=== PATIENT | male | born 1960 | race Caucasian/White ===

== ENCOUNTER → 2016-09-05 | Outpatient (CLI) | payer BC ==
[~2016-09-05] MED LIST: ALLO300T2 PO; ASPEC81 PO; LPT40 PO; MULTTAB58 PO; RANI150C4 PO; SIMV20TA2 PO; VSC/10 PO
--- NOTE | 2016-09-05 08:35 | DIAGNOSTIC IMAGING REPORT ---
CT LUNG SCREENING, LOW DOSE WITH COMPUTER-AIDED DETECTION (CAD) CLINICAL HISTORY: Former smoker. COMPARISON STUDY: Chest 08/14/2010. CT DOSE: 79.39 mGycm TECHNIQUE: Low-dose helical CT was acquired without intravenous contrast from lung apices to bases and reconstructed at 2.5 mm every 2 mm. CAD was utilized for this study. FINDINGS: Tiny nodule within the anterior segment of the right upper lobe on image 65 of 163 and a tiny nodule within the right middle lobe on image 122 of 163. Mild emphysema. No pleural effusions. No pneumothorax. Trace mucoid material within the trachea. Otherwise, the central airways are patent. No suspicious lytic or blastic osseous lesions. No mediastinal or hilar lymphadenopathy. The heart is normal in size. No pleural or pericardial effusions. The visualized liver, spleen, and adrenal glands are unremarkable. Nodule 1 Category: 2 Nodule 1 Status: Baseline Nodule 1 Description: Solid Nodule 1 Lesion ID: 1 Nodule 1 Slice Number: 42 Nodule 1 Volume (mm3): 20 Nodule 1 Major [place] mm: 3.8 Nodule 1 Minor [place] mm: 3.4 Nodule 2 Category: 2 Nodule 2 Status: Baseline Nodule 2 Description: Solid Nodule 2 Lesion ID: 2 Nodule 2 Slice Number: 99 Nodule 2 Volume (mm3): 15 Nodule 2 Major [place] mm: 4.0 Nodule 2 Minor [place] mm: 3.3 IMPRESSION: 1. There are total of 2 nodules within the right lung with recommendations described below. 2. Mild emphysema. CAD FINDINGS: Overall Lung RADS Category: 2 Lung RADS Management Recommendation: Lung-RADS 2: Continue annual screening in 12 months. Lung RADS Follow Up Date: 2017-09-05 Lung RADS Nodule ID: 1 Electronically signed by: Sal Durham M.D. 09/05/2016 8:34 AM Dictated Date/Time: 09/05/2016 8:24 AM
== END | disposition home or self-care (01) ==
LOC: C.CTS 08:05
PROVIDERS: ATTEND Internal Medicine
DX: R91.8 Other nonspecific abnormal finding of lung field (principal); J43.9 Emphysema, unspecified; Z87.891 Personal history of nicotine dependence

== ENCOUNTER 2016-10-21 11:04 | Observation (INO) | payer BC ==
[~2016-10-21] VITALS: Ht 182.9 cm; Wt 88.9 kg
[~2016-10-21 11:04] MED LIST changes: -ASPEC81 PO; -LPT40 PO
--- NOTE | 2016-10-21 11:45 | DIAGNOSTIC IMAGING REPORT ---
CHEST ONE VIEW PORTABLE HISTORY:56 yearsMaleacute chest pain and numbness. COMPARISON: 08/14/2010 TECHNIQUE: Portable upright AP view of the chest FINDINGS: Cardiomediastinal and hilar silhouettes are within normal limits. No pneumothorax, pleural effusion, focal airspace consolidation or overt pulmonary edema. Bones are grossly intact. IMPRESSION: No acute cardiopulmonary process. The above report was generated using voice recognition software. It may contain grammatical, syntax or spelling errors. Electronically signed by: Aidan Cunningham 10/21/2016 11:43 AM Dictated Date/Time: 10/21/2016 11:42 AM
[2016-10-21 11:47] LABS: HEMATOCRIT 39.5 % (42-52); MEAN CELL VOLUME 94.3 fL (80-100); MEAN CORPUSCULAR HEMOGLOBIN 31.7 pg (25-34); MEAN CORPUSCULAR HGB CONC 33.7 g/dl (32-36); MEAN PLATELET VOLUME 10.5 fL (7.4-10.4); PLATELET COUNT 193 K/uL (130-400); RED BLOOD COUNT 4.19 M/uL (4.7-6.1); WHITE BLOOD COUNT 4.49 K/uL (4.8-10.8)
[2016-10-21 11:56] LABS: BUN/CREATININE RATIO 13.2 (10-20); CALCIUM 9.7 mg/dl (8.5-10.1); CREATININE 1.1 mg/dl (0.60-1.40); POTASSIUM 3.8 mmol/L (3.5-5.1)
[2016-10-21] MEDS ORDERED: ASPIRIN 324 MG CHEW PO STA (11:58)
[2016-10-21] MEDS ORDERED: NITROGLYCERIN OINT 2% 1GM PACKET EXT ONE (12:00)
[2016-10-21 12:08] LABS: PARTIAL THROMBOPLASTIN RATIO 0.9; PROTHROMBIN TIME (PATIENT) 10.7 SECONDS (9.0-12.0)
[2016-10-21 12:59] LABS: LYME DISEASE AB IGG NEG (NEG)
[2016-10-21 13:02] LABS: LYME DISEASE AB IGM NEG (NEG)
--- NOTE | 2016-10-21 15:13 | DIAGNOSTIC IMAGING REPORT ---
LEFT LOWER EXTREMITY VENOUS DOPPLER CLINICAL HISTORY: Left calf pain. SOB with exertion COMPARISON STUDY: No previous studies for comparison. TECHNIQUE: Sonography of the deep venous system of the left lower extremity was performed. Compression and augmentation were evaluated. FINDINGS: The common femoral, superficial femoral and popliteal veins were compressible. Augmentation was normal. Flow was shown within the deep calf vessels. IMPRESSION: No evidence of deep venous thrombus within the left lower extremity. Electronically signed by: Tonio Charles M.D. 10/21/2016 3:11 PM Dictated Date/Time: 10/21/2016 3:11 PM
[2016-10-21] MEDS ORDERED: POLYETHYLENE (MIRALAX) 17 GM PACK PO PRN (17:15)
[2016-10-21] MEDS ORDERED: MAGNESIUM HYDROXIDE SUSP 30 ML UDC PO PRN (17:15)
[2016-10-21] MEDS ORDERED: NITROGLYCERIN 0.4 MG SL PER TAB CHARGE SL PRN (17:15)
[2016-10-21] MEDS ORDERED: ONDANSETRON INJ 2 MG/ML 2 ML VIAL IV PRN (17:15)
[2016-10-21] MEDS ORDERED: ALUMINUM/MAGNESIUM/SIMETH (MAALOX MAX) 30 ML UDC PO PRN (17:15)
--- NOTE | 2016-10-21 17:18 | History and Physical ---
History & Physical Date & Time of Service: Oct 21, 2016 at 17:15 Chief Complaint: Chest Pain, Numbness Primary Care Physician: Claudio De La Rosa M.D. History of Present Illness Source: patient Mr. Abdi is a 56 y/o male with PMHx of HLD, YAIMA S/P Nasal Surgery on BiPAP at night, GERD, and S/P Lumbar Herniated Disc Repair who presents to the ED complaining of L-sided CP x 1 month. He has had an intermittent L sided chest pain that only occurs with activity and lasts a few minutes and resolves. Over the last 3-4 days the pain seems to be more intense and and occurring more frequently. Other then increased intensity the characteristics of CP have not changed. Pain is located near the L nipple and is sharp in nature. He denies aggravating or alleviating factors to this chest pain. Reports associated diffuse L arm, L leg traveling along the medial aspect, and L facial numbness/ tingling x 1 month. He does report a history of low back issues and intermittent upper back pain. He hauls trees/logs for a living but denies trauma to the chest or back over this past month. He denies any weakness associated with the numbness/tingling. He does drink 2 glasses of wine a day, was a former smoker, and currently smoke marijuana daily. reports patient normally only eats one meal a day but denies known B12/folate deficiency. Reports a FHMx of [place] in his father in his 50s. He denies fever/chills, SOB, abdominal pain, N/V, dysuria, constipation/diarrhea, melena/hematochezia. In the ED, patient is currently CP free and only verbalizes L arm numbness. He received ASA 324 mg x 1 and Nitropaste. EKG is NSR without ischemic findings. Initial troponin negative. AST and ALT elevated at 74 and 83 respectively. CXR and venous doppler unremarkable. He will be admitted to telemetry for chest pain R/O. Past Medical/Surgical History Medical Problems: (1) ACUTE APPENDICITIS NOS Status: Resolved (2) Appendectomy Status: Resolved (3) CALCULUS OF KIDNEY Status: Resolved (4) INCISIONAL HERNIA Status: Resolved (5) PURE HYPERCHOLESTEROLEM Status: Resolved Family History COPD FATHER Cancer BROTHER, Colon Cancer FATHER Hypertension MOTHER Myocardial Infarction FATHER Stroke MOTHER Social History Smoking Status: Former Smoker Smokeless Tobacco Use: No Alcohol Use: heavy (2 glasses wine daily) Drug Use: marijuana (daily) Marital Status: Occupational Status: employed Immunizations History of Influenza Vaccine: N/A History of Tetanus Vaccine?: Yes History of Pneumococcal: Unknown History of Hepatitis B Vaccine: Unknown Multi-Drug Resistant Organisms History of MDRO: No Allergies Coded Allergies: No Known Allergies (Verified , 10/21/16) Home Medications Scheduled Allopurinol (Zyloprim), 300 MG PO DAILY Multiple Vitamin (Multivitamin), 1 TABLET PO DAILY Ranitidine Hcl (Ranitidine Hcl), 150 MG PO BID Simvastatin (Zocor), 20 MG PO QPM Solifenacin Succinate (Vesicare), 10 MG PO DAILY Review of Systems Constitutional: No fever, No chills, No sweats Eyes: No worsening of vision, No eye pain, No diplopia ENT: No nasal symptoms, No sore throat, No trouble swallowing Respiratory: + cough (chronic), No shortness of breath Cardiovascular: + chest pain (L-sided), No palpitations Abdomen: No pain, No nausea, No vomiting, No diarrhea, No constipation Musculoskeletal: No swelling, No calf pain Genitourinary - Male: No dysuria Neurologic: + numbness/tingling (L arm (diffuse); L leg travels medially full length of leg; L facial numbness) Psychiatric: + substance abuse (daily marijuana) Hematologic / Lymphatic: No abnormal bleeding/bruising, No clotting problems Integumentary: No rash, No itch Physical Exam Vital Signs Date Time Temp Pulse Resp B/P (MAP) Pulse Ox O2 Delivery O2 Flow Rate FiO2 10/21/16 16:30 73 20 130/88 98 Room Air 10/21/16 14:47 97 20 135/83 98 Room Air 10/21/16 14:01 79 10/21/16 12:05 76 12 137/94 96 Room Air 10/21/16 11:35 98 Room Air 10/21/16 11:34 99 Room Air 10/21/16 11:15 36.6 78 16 145/100 98 Room Air 10/21/16 11:15 77 General Appearance: WD/WN, no apparent distress, + thin Head: normocephalic, atraumatic Eyes: sclerae normal ENT: hearing grossly normal Neck: supple, no JVD, no carotid bruits, trachea midline Respiratory/Chest: lungs clear, normal breath sounds, no respiratory distress, no accessory muscle use, + pertinent finding (chest tenderness to palpation; no deformities appreciated with palpation of L ribs) Cardiovascular: regular rate, rhythm, no gallop, no murmur Abdomen/GI: normal bowel sounds, non tender, soft Back: normal inspection, no CVA tenderness Extremities/Musculoskelatal: no calf tenderness, no pedal edema Neurologic/Psych: alert, oriented x 3, + pertinent finding (strength equal throughout; no focal neurological deficits; no facial droop or slurred speech) Skin: normal color, warm/dry Diagnostics Laboratory Results Results Past 24 Hours Test 10/21/16 11:00 10/21/16 11:10 10/21/16 11:36 10/21/16 11:58 Range/Units Lyme Disease IgG Antibody NEG NEG Lyme Disease IgM Antibody NEG NEG White Blood Count 4.49 4.8-10.8 K/uL Red Blood Count 4.19 4.7-6.1 M/uL Hemoglobin 13.3 14.0-18.0 g/dL Hematocrit 39.5 42-52 % Mean Corpuscular Volume 94.3 80-100 fL Mean Corpuscular Hemoglobin 31.7 25-34 pg Mean Corpuscular Hemoglobin Concent 33.7 32-36 g/dl RDW Standard Deviation 48.3 36.4-46.3 fL RDW Coefficient of Variation 14.1 11.5-14.5 % Platelet Count 193 130-400 K/uL Mean Platelet Volume 10.5 7.4-10.4 fL Prothrombin Time 10.7 9.0-12.0 SECONDS Prothromb Time International Ratio 1.0 0.9-1.1 Activated Partial Thromboplast Time 24.3 21.0-31.0 SECONDS Partial Thromboplastin Ratio 0.9 Sodium Level 141 136-145 mmol/L Potassium Level 3.8 3.5-5.1 mmol/L Chloride Level 106 98-107 mmol/L Carbon Dioxide Level 25 21-32 mmol/L Anion Gap 10.0 3-11 mmol/L Blood Urea Nitrogen 15 7-18 mg/dl Creatinine 1.10 0.60-1.40 mg/dl Est Creatinine Clear Calc Drug Dose 82.3 ml/min Estimated GFR () 86.5 Estimated GFR (Non- 74.6 BUN/Creatinine Ratio 13.2 10-20 Random Glucose 96 70-99 mg/dl Calcium Level 9.7 8.5-10.1 mg/dl Total Bilirubin 0.3 0.2-1 mg/dl Aspartate Amino Transf (AST/SGOT) 74 15-37 U/L Alanine Aminotransferase (ALT/SGPT) 83 12-78 U/L Alkaline Phosphatase 76 45-117 U/L Total Creatine Kinase 126 39-308 U/L Creatine Kinase MB 1.2 0.5-3.6 ng/ml Creatine Kinase MB Ratio 1.0 0-3.0 Total Protein 7.3 6.4-8.2 gm/dl Albumin 3.6 3.4-5.0 gm/dl Globulin 3.7 2.5-4.0 gm/dl Albumin/Globulin Ratio 1.0 0.9-2 Bedside Troponin I < 0.030 0-0.045 ng/ml D-Dimer 210 0-500 ug/L FEU Diagnostic Radiology CHEST ONE VIEW PORTABLE HISTORY:56 yearsMaleacute chest pain and numbness. COMPARISON: 08/14/2010 TECHNIQUE: Portable upright AP view of the chest FINDINGS: Cardiomediastinal and hilar silhouettes are within normal limits. No pneumothorax, pleural effusion, focal airspace consolidation or overt pulmonary edema. Bones are grossly intact. IMPRESSION: No acute cardiopulmonary process. LEFT LOWER EXTREMITY VENOUS DOPPLER CLINICAL HISTORY: Left calf pain. SOB with exertion COMPARISON STUDY: No previous studies for comparison. TECHNIQUE: Sonography of the deep venous system of the left lower extremity was performed. Compression and augmentation were evaluated. FINDINGS: The common femoral, superficial femoral and popliteal veins were compressible. Augmentation was normal. Flow was shown within the deep calf vessels. IMPRESSION: No evidence of deep venous thrombus within the left lower extremity. EKG Normal sinus rhythm Normal ECG When compared with ECG of 14-AUG-2010 22:10, No significant change was found Impression Assessment and Plan Mr. Abdi is a 56 y/o male with PMHx of HLD, YAIMA S/P Nasal Surgery on BiPAP at night, GERD, and S/P Lumbar Herniated Disc Repair who presents to the ED complaining of L-sided CP x 1 month Chest Pain: ACS vs Musculoskeletal - Patient with risk factors for CAD but on exam CP is reproducible and mimics the CP he has been experiencing - Rib series given reproducible nature of CP - ASA 81 mg daily - Serial troponins and lipid panel - Stress echo - NPO at midnight except meds Numbness/Tingling: Metabolic vs Radiculopathy - No focal motor deficits appreciated and do not suspect CVA; has poor eating habits; daily ETOH consumption - if change in neuro examination can obtain CT Head -- Sensory findings are unilateral involving face (no visual changes), L arm , and L leg - does report history of HAs - B12 and folate; HbA1c Normocytic Anemia: Chronic - Low normal values leaning towards macrocytic - obtain B12 and folate in setting of ETOH use Transaminitis: - Repeat CBC in AM - could be related to ETOH use or HLD - Consideration for Liver U/S pending AM labs - can be obtained as outpatient YAIMA S/P Nasal Surgery: - Setup BiPAP HLD: - Obtain lipid panel in AM ETOH and Marijuana Use: - Promote cessation - will utilize AWSS at risk protocol with PRN Ativan DVT Prophylaxis: ANAHI/SCDs; Ambulation Code Status: FULL RESUSCITATION Disposition: - Given chronic back issues - would benefit from outpatient imaging if stress negative Level of Care Telemetry Resuscitation Status FULL RESUSCITATION VTE Prophylaxis VTE Risk Assessment Done? Y/N: Yes Risk Level: Moderate Given or contraindicated: TAngelina Stockings, SCD's Reviewed: Pt Seen/Exam by Me History Pt has no chest pain or UE pain at this time. States he does not get it at rest , but only with activity and that this has become more frequent in the last few days. No change in intensity, only frequency. Denies n/v, diaphoresis. Denies trauma. Agree with HPI/ROS as noted. General Appearance: WD/WN, no apparent distress Respiratory: normal breath sounds, no respiratory distress, other (L lateral chest wall pain on upper thoracic wall into axillary) Cardiovascular: normal peripheral pulses, regular rate, rhythm Gastrointestinal: non tender, soft Extremities: no pedal edema, calf tenderness (L only) Neurologic/Psychiatric: alert, normal mood/affect Skin Characteristics: normal color, warm/dry Assessment/Plan Agree with plan as outlined above. Chest pain r/o given FH and prior hx of tobacco use Initial w/u neg including ddimer and L LE US Reproducible on exam Lyme neg Serial trops and stress ECHO in AM if neg Mild anemia with MCV at upper limit of normal and hx of daily, albeit reportedly low, alcohol intake
[2016-10-21] MEDS ORDERED: ZOLPIDEM TARTRATE 5 MG TAB PO PRN (17:30)
[2016-10-21] MEDS ORDERED: LORAZEPAM 2 MG/ML 1 ML VIAL IV PRN (18:00)
[2016-10-21 18:13] VITALS: BP 142/88; PULSE 66; TEMP 36.6; Ht 182.9 cm; Wt 88.9 kg
--- NOTE | 2016-10-21 18:22 | EMERGENCY ROOM VISIT NOTE ---
History First contact with patient: 11:46 Chief Complaint: CHEST PAIN Stated Complaint: CHEST PAIN Nursing Triage Summary: PT HERE WITH SEVERAL EPISODES OF CHEST PAINS INTERMITTENTLY X ONE MONTH. PT STATES LASTS A SHORT TIME BUT THEN HAS NUMBNESS IN LEFT ARM, LEG AND FACE LASTING A FEW HOURS WITH THIS. OCCASIONAL HEADACHES NOTED. PT STATES HX OF HIGH CHOLESTEROL, NO KNOWN CARDIAC HX. History of Present Illness The patient is a 56 year old male who presents to the Emergency Room with complaints of intermittent episodes of left-sided chest pain with radiation to his left arm for the past 3-4 weeks. The patient states these episodes are of short duration but appear to be related to exertional activity. The patient states that he is very active, however the pain will stop him from doing activities such as mowing his lawn. The patient does have high cholesterol but no history of known cardiac disease or diabetes. He has a very strong family history of heart disease with his father having his first heart attack in his early 50s. The patient has not had illness such as fever or chills. No abdominal pain or difficulty using the bathroom. The patient rates his current discomfort a 0/10. He has not been taking anything [id number] for pain control. He additionally states that he has had vague left calf pain intermittently. He does have a recent trip to [facility] this month. Review of Systems More than 10 systems were reviewed and otherwise negative with the exception of history of present illness. Past Medical/Surgical History Medical Problems: (1) ACUTE APPENDICITIS NOS (2) Appendectomy (3) CALCULUS OF KIDNEY (4) Chest pain (5) INCISIONAL HERNIA (6) PURE HYPERCHOLESTEROLEM Family History COPD FATHER Cancer BROTHER, Colon Cancer FATHER Hypertension MOTHER Myocardial Infarction FATHER Stroke MOTHER Social History Smoking Status: Former Smoker Smokeless Tobacco Use: No Alcohol Use: none Drug Use: marijuana (daily) Marital Status: Housing Status: lives with family Occupation Status: employed Current/Historical Medications Scheduled Allopurinol (Zyloprim), 300 MG PO DAILY Multiple Vitamin (Multivitamin), 1 TABLET PO DAILY Ranitidine Hcl (Ranitidine Hcl), 150 MG PO BID Simvastatin (Zocor), 20 MG PO QPM Solifenacin Succinate (Vesicare), 10 MG PO DAILY Allergies Coded Allergies: No Known Allergies (Verified , 10/21/16) Physical Exam Vital Signs Date Time Temp Pulse Resp B/P (MAP) Pulse Ox O2 Delivery O2 Flow Rate FiO2 10/21/16 16:30 73 20 130/88 98 Room Air 10/21/16 14:47 97 20 135/83 98 Room Air 10/21/16 14:01 79 10/21/16 12:05 76 12 137/94 96 Room Air 10/21/16 11:35 98 Room Air 10/21/16 11:34 99 Room Air 10/21/16 11:15 36.6 78 16 145/100 98 Room Air 10/21/16 11:15 77 Pain Rating (0-10): 0 Physical Exam VITALS: Vitals are noted on the nurse's note and reviewed by myself. Vital signs stable. GENERAL: Well-developed, well-nourished, white male, who is in no acute distress and resting comfortably. Patient is cooperative with the examination. HEAD: Normocephalic atraumatic. HEART: Regular rate and rhythm without murmurs gallops or rubs. LUNGS: Clear to auscultation bilaterally without wheezes, rales or rhonchi. No retractions or accessory muscle use. ABDOMEN: Positive normal bowel sounds x 4. Soft, nontender, without masses or organomegaly. No guarding or rebound tenderness. MUSCULOSKELETAL: No muscle atrophy, erythema, or edema noted. Full range of motion without joint tenderness in all extremities. Negative Homans sign bilateral. Medical Decision & Procedures ER Provider Diagnostic Interpretation: CHEST ONE VIEW PORTABLE HISTORY:56 yearsMaleacute chest pain and numbness. COMPARISON: 08/14/2010 TECHNIQUE: Portable upright AP view of the chest FINDINGS: Cardiomediastinal and hilar silhouettes are within normal limits. No pneumothorax, pleural effusion, focal airspace consolidation or overt pulmonary edema. Bones are grossly intact. IMPRESSION: No acute cardiopulmonary process. The above report was generated using voice recognition software. It may contain grammatical, syntax or spelling errors. LEFT LOWER EXTREMITY VENOUS DOPPLER CLINICAL HISTORY: Left calf pain. SOB with exertion COMPARISON STUDY: No previous studies for comparison. TECHNIQUE: Sonography of the deep venous system of the left lower extremity was performed. Compression and augmentation were evaluated. FINDINGS: The common femoral, superficial femoral and popliteal veins were compressible. Augmentation was normal. Flow was shown within the deep calf vessels. IMPRESSION: No evidence of deep venous thrombus within the left lower extremity. Laboratory Results 10/21/16 11:10 10/21/16 11:10 Test 10/21/16 11:00 10/21/16 11:10 10/21/16 11:36 10/21/16 11:58 Lyme Disease IgG Antibody NEG (NEG) Lyme Disease IgM Antibody NEG (NEG) Red Blood Count 4.19 M/uL (4.7-6.1) Mean Corpuscular Volume 94.3 fL (80-100) Mean Corpuscular Hemoglobin 31.7 pg (25-34) Mean Corpuscular Hemoglobin Concent 33.7 g/dl (32-36) RDW Standard Deviation 48.3 fL (36.4-46.3) RDW Coefficient of Variation 14.1 % (11.5-14.5) Mean Platelet Volume 10.5 fL (7.4-10.4) Prothrombin Time 10.7 SECONDS (9.0-12.0) Prothromb Time International Ratio 1.0 (0.9-1.1) Activated Partial Thromboplast Time 24.3 SECONDS (21.0-31.0) Partial Thromboplastin Ratio 0.9 Anion Gap 10.0 mmol/L (3-11) Est Creatinine Clear Calc Drug Dose 82.3 ml/min Estimated GFR () 86.5 Estimated GFR (Non- 74.6 BUN/Creatinine Ratio 13.2 (10-20) Calcium Level 9.7 mg/dl (8.5-10.1) Total Bilirubin 0.3 mg/dl (0.2-1) Aspartate Amino Transf (AST/SGOT) 74 U/L (15-37) Alanine Aminotransferase (ALT/SGPT) 83 U/L (12-78) Alkaline Phosphatase 76 U/L (45-117) Total Creatine Kinase 126 U/L (39-308) Creatine Kinase MB 1.2 ng/ml (0.5-3.6) Creatine Kinase MB Ratio 1.0 (0-3.0) Total Protein 7.3 gm/dl (6.4-8.2) Albumin 3.6 gm/dl (3.4-5.0) Globulin 3.7 gm/dl (2.5-4.0) Albumin/Globulin Ratio 1.0 (0.9-2) Bedside Troponin I < 0.030 ng/ml (0-0.045) D-Dimer 210 ug/L FEU (0-500) Medications Administered Medications (Trade) Dose Ordered Sig/Kacie Route Start Time Stop Time Status Last Admin Dose Admin Aspirin (Aspirin Chew) 324 mg NOW STAT PO 10/21/16 11:58 10/21/16 11:59 DC 10/21/16 12:06 324 MG Nitroglycerin (Nitroglycerin 2% Oint) 1 inch NOW ONCE EXT 10/21/16 12:00 10/21/16 12:01 DC 10/21/16 12:07 1 INCH ECG Change: Normal sinus rhythm @82 bpm Normal ECG When compared with ECG of 14-AUG-2010 22:10, No significant change was found Confirmed by ALNA MONTERO ([id number]) on 10/21/2016 5:42:36 PM ED Course Physical exam and history were performed. Nursing notes and EMR were reviewed. Medication list was reviewed. Patient appears to have intermittent and vague left-sided chest pain with radiation to his left arm that appears to worsen with exertional activity. The patient reports a strong family history of cardiac disease and has a personal history of dyslipidemia. IV access was established and labs were obtained. EKG was normal sinus rhythm as above without ischemia or ectopy. The patient was given 324 mg aspirin and 1 inch Nitropaste. He is placed on the front desk monitor. Chest x-ray was performed. Because of his vague left calf pain I did elect to perform an ultrasound. The patient's blood work is as above and was reviewed. He does not have a significant elevated white blood cell count or gross anemia, bandemia, or significant electrolyte imbalance. Lipase and transaminases are nondiagnostic. Troponin and d-dimer 1 are both negative. Chest x-ray does not show acute findings. Ultrasound was without evidence of DVT. Overall the patient remained pain-free and quite comfortable here in the emergency department. I do have concern that the patient's symptoms seem to worsen with activity. This certainly could represent an unstable anginal picture, and the patient has not had previous cardiac evaluation before. I did discuss the case with the [facility] hospitalist group who agreed to evaluate the patient here in the emergency department for further care and management. Please see their dictation for further patient course, plan, and disposition. The chart was completed utilizing [employer] Voice Recognition Software. Grammatical errors, random word insertions, pronoun errors, and incomplete sentences are an occasional consequence of this system due to software limitations, ambient noise, and hardware issues. Any formal questions or concerns about the content, text, or information contained within the body of this dictation should be directly addressed to the provider for clarification. . Medical Decision Differential diagnosis includes, but is not limited to: Myocardial infarction, dysrhythmia, pericarditis, pneumothorax, aortic aneurysm/dissection, DVT/PE, anxiety, GERD, PUD, electrolyte imbalance, thyroid disorder, pneumonia, bronchitis, pancreatitis, and others Impression Primary Impression: Left sided chest pain Departure Information Dispostion Still a Patient Condition FAIR Referrals Claudio De La Rosa M.D. (PCP) Forms HOME CARE DOCUMENTATION FORM, IMPORTANT VISIT INFORMATION Patient Instructions [facility]
[2016-10-21] MEDS: ACETAMINOPHEN 325 MG TAB PO PRN (19:40)
[2016-10-21 20:00] VITALS: BP 150/77; PULSE 67; TEMP 36.8; O2SAT 97
[2016-10-21] MEDS ORDERED: IV FLUIDS COMPLETED PRN (20:15)
[2016-10-21] MEDS ORDERED: SIMVASTATIN 20 MG TAB PO SCH (21:00)
[2016-10-21] MEDS: RANITIDINE HCL 150 MG TAB PO SCH (21:49)
[2016-10-21 22:25] VITALS: BP 130/83; PULSE 71
[2016-10-21 23:58] VITALS: BP 129/83; PULSE 53; TEMP 36.8; O2SAT 97
[2016-10-22] VITALS (7 sets, daily range): BP systolic 132–147; BP diastolic 86–91; PULSE 67–78; TEMP 36.6–37; O2SAT 95–97
[2016-10-22] MEDS ORDERED: IBUPROFEN 600 MG TAB PO STA (05:09)
[2016-10-22 07:51] LABS: HEMATOCRIT 42.3 % (42-52); MEAN CELL VOLUME 94.4 fL (80-100); MEAN CORPUSCULAR HEMOGLOBIN 31.9 pg (25-34); MEAN CORPUSCULAR HGB CONC 33.8 g/dl (32-36); MEAN PLATELET VOLUME 10.3 fL (7.4-10.4); PLATELET COUNT 187 K/uL (130-400); RED BLOOD COUNT 4.48 M/uL (4.7-6.1); WHITE BLOOD COUNT 4.89 K/uL (4.8-10.8)
[2016-10-22] MEDS: ACETAMINOPHEN 325 MG TAB PO PRN (08:10)
[2016-10-22] MEDS: RANITIDINE HCL 150 MG TAB PO SCH (08:10)
--- NOTE | 2016-10-22 08:21 | Family Medicine Progress Note ---
Progress Note Date of Service Oct 22, 2016. Subjective Pt evaluation today including: conversation w/ patient, physical exam Feels ok today - is NPO for stress test this AM. Pain persistent overnight. Denies any other concerns. Chest pain remains reproducible, on left side wrapping around side. Reports he has had numbness to the left side of his face, including his eye, arms and legs over the last month. Denies any pain, but reports he is hard working and just pushes himself through all sensations. Constitutional: No fever Eyes: No worsening of vision ENT: No hearing loss Respiratory: No cough All Other Systems: Reviewed and Negative Medications Current Inpatient Medications Medications (Trade) Dose Ordered Sig/Kacie Route Start Time Stop Time Status Last Admin Dose Admin Acetaminophen (Tylenol Tab) 650 mg Q4H PRN PO 10/21/16 17:15 11/20/16 17:14 10/22/16 08:10 650 MG Al Hydrox/Mg Hydrox/Simethicone (Maalox Max Susp) 15 ml Q4H PRN PO 10/21/16 17:15 11/20/16 17:14 Magnesium Hydroxide (Milk Of Magnesia Susp) 30 ml Q12H PRN PO 10/21/16 17:15 11/20/16 17:14 Ondansetron HCl (Zofran Inj) 4 mg Q6H PRN IV 10/21/16 17:15 11/20/16 17:14 Nitroglycerin (Nitrostat Tab) 0.4 mg UD PRN SL 10/21/16 17:15 11/20/16 17:14 10/21/16 22:23 0.4 MG Aspirin (Ecotrin Tab) 81 mg QAM PO 10/22/16 09:00 11/21/16 08:59 10/22/16 08:10 81 MG Polyethylene (Miralax Powder Packet) 17 gm DAILY PRN PO 10/21/16 17:15 11/20/16 17:14 Allopurinol (Zyloprim Tab) 300 mg DAILY PO 10/22/16 09:00 11/21/16 08:59 10/22/16 08:10 300 MG Simvastatin (Zocor Tab) 20 mg QPM PO 10/21/16 21:00 11/20/16 20:59 10/21/16 21:49 20 MG Ranitidine HCl (zANTac TAB) 150 mg BID PO 10/21/16 21:00 11/20/16 20:59 10/22/16 08:10 150 MG Miscellaneous Information (Order Awaiting Action) 1 ea QS N/A 10/22/16 00:00 11/21/16 00:00 Zolpidem Tartrate (Ambien Tab) 5 mg HS PRN PO 10/21/16 17:30 11/20/16 17:29 Lorazepam (Ativan Inj) 1 mg ONE PRN IV 10/21/16 18:00 Miscellaneous (Iv Fluids Completed) 1 ea PRN PRN N/A 10/21/16 20:15 10/21/17 20:14 Objective Vital Signs Date Time Temp Pulse Resp B/P (MAP) Pulse Ox O2 Delivery O2 Flow Rate FiO2 10/22/16 07:09 36.9 67 20 132/90 (104) 96 Room Air 10/22/16 05:09 36.8 75 17 147/89 (108) 97 Room Air 10/22/16 04:00 Room Air 10/22/16 03:40 36.6 69 17 133/86 (102) 96 Room Air 10/22/16 00:00 Room Air 10/21/16 23:58 36.8 53 20 129/83 (98) 97 Room Air 10/21/16 22:25 71 130/83 (99) 10/21/16 20:00 36.8 67 16 150/77 (101) 97 Room Air 10/21/16 20:00 Room Air 10/21/16 18:13 36.6 66 20 142/88 Room Air 10/21/16 16:30 73 20 130/88 98 Room Air 10/21/16 14:47 97 20 135/83 98 Room Air 10/21/16 14:01 79 10/21/16 12:05 76 12 137/94 96 Room Air 10/21/16 11:35 98 Room Air 10/21/16 11:34 99 Room Air 10/21/16 11:15 36.6 78 16 145/100 98 Room Air 10/21/16 11:15 77 Physical Exam General Appearance: WD/WN, no apparent distress Eyes: normal inspection ENT: hearing grossly normal Neck: supple, no JVD Respiratory/Chest: lungs clear, normal breath sounds, no respiratory distress Cardiovascular: regular rate, rhythm, no murmur, + pertinent finding ( reproducible pain w/palpation) Abdomen: normal bowel sounds, non tender, soft Extremities: non-tender, no pedal edema Neurologic/Psychiatric: alert, oriented x 3, + sensory deficit (mild subjective sensory deficit to L face, arms, legs) Skin: no rash Laboratory Results Last 24 Hours Test 10/21/16 11:00 10/21/16 11:10 10/21/16 11:36 10/21/16 11:58 Lyme Disease IgG Antibody NEG Lyme Disease IgM Antibody NEG White Blood Count 4.49 K/uL Red Blood Count 4.19 M/uL Hemoglobin 13.3 g/dL Hematocrit 39.5 % Mean Corpuscular Volume 94.3 fL Mean Corpuscular Hemoglobin 31.7 pg Mean Corpuscular Hemoglobin Concent 33.7 g/dl RDW Standard Deviation 48.3 fL RDW Coefficient of Variation 14.1 % Platelet Count 193 K/uL Mean Platelet Volume 10.5 fL Prothrombin Time 10.7 SECONDS Prothromb Time International Ratio 1.0 Activated Partial Thromboplast Time 24.3 SECONDS Partial Thromboplastin Ratio 0.9 Sodium Level 141 mmol/L Potassium Level 3.8 mmol/L Chloride Level 106 mmol/L Carbon Dioxide Level 25 mmol/L Anion Gap 10.0 mmol/L Blood Urea Nitrogen 15 mg/dl Creatinine 1.10 mg/dl Est Creatinine Clear Calc Drug Dose 82.3 ml/min Estimated GFR () 86.5 Estimated GFR (Non- 74.6 BUN/Creatinine Ratio 13.2 Random Glucose 96 mg/dl Calcium Level 9.7 mg/dl Total Bilirubin 0.3 mg/dl Aspartate Amino Transf (AST/SGOT) 74 U/L Alanine Aminotransferase (ALT/SGPT) 83 U/L Alkaline Phosphatase 76 U/L Total Creatine Kinase 126 U/L Creatine Kinase MB 1.2 ng/ml Creatine Kinase MB Ratio 1.0 Total Protein 7.3 gm/dl Albumin 3.6 gm/dl Globulin 3.7 gm/dl Albumin/Globulin Ratio 1.0 Bedside Troponin I < 0.030 ng/ml D-Dimer 210 ug/L FEU Test 10/21/16 18:11 10/21/16 23:20 10/22/16 07:28 Troponin I < 0.015 ng/ml < 0.015 ng/ml Vitamin B12 Level 503 pg/mL Folate > 24.00 ng/mL White Blood Count 4.89 K/uL Red Blood Count 4.48 M/uL Hemoglobin 14.3 g/dL Hematocrit 42.3 % Mean Corpuscular Volume 94.4 fL Mean Corpuscular Hemoglobin 31.9 pg Mean Corpuscular Hemoglobin Concent 33.8 g/dl RDW Standard Deviation 48.0 fL RDW Coefficient of Variation 13.9 % Platelet Count 187 K/uL Mean Platelet Volume 10.3 fL Assessment and Plan 56 yo M with YAIMA, Hyperlipidemia, GERD with CP x 1 month - ddx cardiac vs musculoskeletal. Other active issue includes 1 month x left sided numbness Chest Pain: ACS vs Musculoskeletal For MSK causes: - Rib series Xray pending - Will apply Voltaren gel to area For ACS: - ASA 81 mg daily - Serial troponins and lipid panel - Stress echo pending today, if normal could potentially go home Hyperlipidemia - Will change statin from Zocor 20 to Lipitor 40mg qHS Left sided numbness through face, arm, leg - Will obtain MRI without contrast of brain today to evaluate prior stroke YAIMA - CPAP at night DVT Prophylaxis: ANAHI/SCDs; Ambulation Code Status: FULL RESUSCITATION Disposition: Potential DC if stress negative Resident Tracking Resident Involvement: Resident Care Provided Care Provided: Adult Hospital Medicine
[2016-10-22 08:27] LABS: BUN/CREATININE RATIO 10.7 (10-20); CALCIUM 9.6 mg/dl (8.5-10.1); CREATININE 0.95 mg/dl (0.60-1.40); POTASSIUM 3.7 mmol/L (3.5-5.1)
[2016-10-22 08:30] LABS: CHOLESTEROL/HDL RATIO 2.4
[2016-10-22 08:39] LABS: ESTIMATED AVERAGE GLUCOSE 103 mg/dl; HA1C FLAG Normal (Normal)
[2016-10-22] MEDS ORDERED: ALLOPURINOL 300 MG TAB PO SCH (09:00)
[2016-10-22] MEDS ORDERED: ASPIRIN 81 MG ECTAB PO SCH (09:00)
--- NOTE | 2016-10-22 09:07 | DIAGNOSTIC IMAGING REPORT ---
LEFT RIBS UNILATERAL MIN 2 VIEWS CLINICAL HISTORY: L Sided Chest Pain pain. Trauma. COMPARISON STUDY: None FINDINGS: Nondisplaced cortical fracture anterior left eighth rib. Remaining ribs are unremarkable. No evidence of pneumothorax. IMPRESSION: Nondisplaced cortical fracture anterior left eighth rib. Electronically signed by: Cory Ortiz M.D. 10/22/2016 9:06 AM Dictated Date/Time: 10/22/2016 9:04 AM
[2016-10-22] MEDS ORDERED: DICLOFENAC SOD 1% GEL 100 GM TUBE EXT SCH (10:30)
[2016-10-22] MEDS ORDERED: PERFLUTREN LIPID MICROSPHERE (DEFINITY) IV ONE (12:02)
--- NOTE | 2016-10-22 13:26 | EXERCISE STRESS ECHO ---
*NOTICE TO RECEIVING REPUBLICAN AGENCY This information is strictly Confidential and protected under [place] law. [place] law prohibits you from making any further disclosure of this information unless further disclosure is expressly permitted by the written consent of the person to whom it pertains or is authorized by law. A general authorization for the release of medical or other information is not sufficient for this purpose. Hospital accepts no responsibility if the information is made available to any other person, INCLUDING THE PATIENT. Interpretation Summary * Name: EDSON BOLTON Study Date: 10/22/2016 10:29 AM BP: 150/90 mmHg * Patient Location: [facility] HR: 78 * : 1960 (M/d/yyyy) Gender: Male Height: 72 in * Age: 56 yrs Ethnicity: CA Weight: 202 lb * Ordering Physician: Domi Lmion * Referring Physician: LESLEY * Performed By: Grecia Lerner RDCS * * Reason For Study: CHEST PAIN * BSA: 2.1 m2 * -- Conclusions -- * Stress Echo: * 1. No definite ischemic changes noted on exercise stress echo at 86% MPHR. * 2. Negative exercise ECG for ischemia at 86 % MPHR. * 3. Borderline hypertensive blood pressure response to exercise. * 4. No arrhythmia. * 5. Study terminated due to fatigue. Chest pain was present prior to stress test and remained constant throughout. * 6. Fair exercise tolerance. * Echo: * 1. Normal left ventricular size and systolic function. EF 55-60 %. No regional wall motion abnormalities. No left ventricular hypertrophy. Type 1 diastolic dysfunction. * 2. No significant valvular abnormalities. Procedure Details * ECHOEX, CPT #48236 * A contrast injection of Definity was performed to improve assessment of LV function. * Contrast was injected into an intravenous site in the right arm. * One vial of Definity ultrasound contrast was diluted in normal saline to a total volume of 10 ml. A total of '4' ml of solution was administered during imaging. * Lot # [id number] of Definity utilized for procedure. * Expiration date NOV 29. * The attending nurse who injected the contrast agent was BARAK CALL RN. Left Ventricle * The left ventricle is normal in size. * There is normal left ventricular wall thickness. * Left ventricular systolic function is normal. * There were no new wall motion abnormalities following exercise. Systolic function a improved slightly. * Resting wall motion: Normal. Stress wall motion: Appropriate increase in Left ventricular systolic function and decrease in cavity size. No stress induced segmental wall motion abnormalities. Right Ventricle * The right ventricle is normal in size and function. * The right ventricular systolic function is normal as assessed by tricuspid annular plane systolic excursion (TAPSE) (normal >1.5 cm). Atria * The left atrial size is normal. * Right atrial size is normal. * There is no evidence of atrial septal defect, but resolution does not allow assessment for a patent foramen ovale. Mitral Valve * The mitral valve leaflets appear normal. There is no evidence of stenosis, fluttering, or prolapse. * Significant mitral regurgitation is absent. Tricuspid Valve * The tricuspid valve is not well visualized, but is grossly normal. * There is no tricuspid stenosis. * Significant tricuspid regurgitation is absent. Aortic Valve * The aortic valve is trileaflet. * No hemodynamically significant valvular aortic stenosis. * No aortic regurgitation is present. Pulmonic Valve * The pulmonary valve is inadequately visualized, but the Doppler data is adequate for interpretation. * Trace pulmonic valvular regurgitation. Great Vessels * The aortic root is normal size. * Normal IVC size and inspiratory collapse. Pericardium * There is no pericardial effusion. Stress Parameters * NSR at 73 BPM. * Stress ECG: No ST changes. No arrhythmias. * No arrhythmia were noted with stress. * Rest heart rate was '78' BPM. * Rest blood pressure was '150/90' * Maximum heart rate achieved was 144 bpm. * Maximum heart rate was 86 % of maximum age-predicted heart rate. * Total exercise time was '8:30' * Maximum treadmill speed was '3.40' miles per hour. * Maximum treadmill elevation was '14.00'% grade. * Exercise was terminated due to 'ACHIEVING TARGET HR' * Maximum blood pressure was '190/100' MMode 2D Measurements and Calculations IVSd 1.1 cm IVSs 1.5 cm LVIDd 5.2 cm LVIDs 3.5 cm LVPWd 0.92 cm LVPWs 1.6 cm IVS/LVPW 1.2 FS 33.4 % EDV(Teich) 128.6 ml ESV(Teich) 49.2 ml EF(Teich) 61.8 % EDV(cubed) 139.3 ml ESV(cubed) 41.1 ml EF(cubed) 70.5 % % IVS thick 44.2 % % LVPW thick 70.1 % LV mass(C)d 190.2 grams LV mass(C)dI 88.9 grams/m\S\2 LV mass(C)s 199.2 grams LV mass(C)sI 93.1 grams/m\S\2 SV(Teich) 79.4 ml SI(Teich) 37.1 ml/m\S\2 SV(cubed) 98.2 ml SI(cubed) 45.9 ml/m\S\2 Ao root diam 4.0 cm Ao root area 12.3 cm\S\2 LA dimension 3.4 cm LA/Ao 0.85 LVAd ap4 36.3 cm\S\2 LVLd ap4 9.7 cm EDV(MOD-sp4) 113.5 ml EDV(sp4-el) 116.1 ml LVAs ap4 21.0 cm\S\2 LVLs ap4 7.8 cm ESV(MOD-sp4) 47.5 ml ESV(sp4-el) 47.8 ml EF(MOD-sp4) 58.2 % EF(sp4-el) 58.8 % LVAd ap2 37.1 cm\S\2 LVLd ap2 9.7 cm EDV(MOD-sp2) 117.0 ml EDV(sp2-el) 119.8 ml LVAs ap2 21.6 cm\S\2 LVLs ap2 8.3 cm ESV(MOD-sp2) 50.5 ml ESV(sp2-el) 47.5 ml EF(MOD-sp2) 56.9 % EF(sp2-el) 60.3 % LVLd %diff 0.86 % EDV(MOD-bp) 115.9 ml LVLs %diff 6.4 % ESV(MOD-bp) 50.2 ml EF(MOD-bp) 56.7 % SV(MOD-sp4) 66.0 ml SI(MOD-sp4) 30.9 ml/m\S\2 SV(MOD-sp2) 66.5 ml SI(MOD-sp2) 31.1 ml/m\S\2 SV(MOD-bp) 65.7 ml SI(MOD-bp) 30.7 ml/m\S\2 SV(sp4-el) 68.3 ml SI(sp4-el) 31.9 ml/m\S\2 SV(sp2-el) 72.3 ml SI(sp2-el) 33.8 ml/m\S\2 Doppler Measurements and Calculations MV E max antonio 62.6 cm/sec MV A max antonio 82.0 cm/sec MV E/A 0.76 MV dec time 0.25 sec Ao V2 max 160.0 cm/sec Ao max PG 10.2 mmHg Ao max PG (full) 3.8 mmHg LV V1 max PG 6.4 mmHg LV V1 max 126.9 cm/sec
--- NOTE | 2016-10-22 13:26 | EXERCISE STRESS ECHO ---
Please see other stress echo report.
--- NOTE | 2016-10-22 14:58 | DIAGNOSTIC IMAGING REPORT ---
MRI OF THE BRAIN WITHOUT CONTRAST CLINICAL HISTORY: Left facial and leg numbness COMPARISON STUDY: 04/02/2006 FINDINGS: Sagittal T1, axial diffusion, proton density and T2 weighted axial, coronal FLAIR, and axial T1-weighted images were acquired. No intra or extra-axial mass lesions are visualized Axial diffusion-weighted images reveal no evidence of acute or subacute infarction. There is no evidence of ventricular dilatation. Proton density T2-weighted and FLAIR images reveal scattered foci of increased T2 signal within the white matter, likely on a small vessel basis. There are no abnormal flow voids. IMPRESSION: 1. No acute intracranial findings 2. No evidence of intracranial mass in this noncontrast study 3. No evidence of acute or subacute infarction 4. Scattered foci of increased T2 signal within the white matter, similar to the prior study, and likely on a small vessel basis. Electronically signed by: Alexis Taveras M.D. 10/22/2016 2:57 PM Dictated Date/Time: 10/22/2016 2:54 PM
[2016-10-22] MEDS ORDERED: LPT40 PO (15:41)
[2016-10-22] MEDS ORDERED: ASPEC81 PO (15:41)
--- NOTE | 2016-10-22 15:48 | Discharge Instructions ---
Discharge Instructions Date of Service Oct 22, 2016. Admission Reason for Admission: Chest Pain Discharge Discharge Diagnosis / Problem: chest pain - pec major strain Discharge Goals Goal(s): Diagnostic testing Activity Recommendations Activity Limitations: resume your previous activity . Instructions / Follow-Up Instructions / Follow-Up chest pain: -this appears to have been a pec major strain - fortunately the workup for your heart was negative numbness: -the numbness fortunately was not related to a stroke. it likely was more from "wear and tear" and some arthritis and disc disease - talk more with Dr De La Rosa about this if it continues to be a bother primary prevention -because of your risk factors (male, age, cholesterol, family history) you're on the border, but likely would benefit, from starting a baby aspirin and upgrading your statin medication --81mg aspirin - the benefit would be to prevent clots from forming in arteries that have a degree of blockage in them, the downside would be if it starts to cause upset stomach/stomach ulcers or anything similar - which overall is fairly unlikely. for now we'd recommend taking an 81mg aspirin daily - if you were to run into problems you could then stop it and talk with Dr De La Rosa about further measures --switch from simvastatin (zocor) to atorvastatin (lipitor) -- the stronger statins have more plaque stabilization benefit (ie makes it less likely that vascular plaques that are already in arteries will rupture) -- since you're tolerating the simvastatin well, it's very likely that 40mg of atorvastatin will sit just as well. Dr De La Rosa can continue to monitor labs and periodic liver enzymes to ensure things still appear to be sitting well Risk Factors for Stroke: You can reduce your chances of stroke by working with your medical provider to adopt a healthy lifestyle. Some specific ways to lower your chance of stroke are: * If you are a smoker, now is the time to stop smoking cigarettes * If you are diabetic, improve the control of your blood sugars * Avoid excessive amounts of alcohol * Control high blood pressure * Lose weight if you are overweight * Be sure to lead an active lifestyle * Eat a healthy diet low in salt, cholesterol and fat You should know about other risk factors for stroke that you are unable to control. These include: * Age 55 years or older * Male gender * Certain racial groups: , or / * Family History of Stroke, Mini stroke or Heart Attack * Sickle Cell Disease Follow Up: It is important for you to keep your follow up appointments with your medical provider. Current Hospital Diet Patient's current hospital diet: AHA Diet (Heart Healthy) Discharge Diet Recommended Diet: AHA Diet (Heart Healthy) Pending Studies Studies pending at discharge: no Laboratory Results Last 24 Hours Test 10/21/16 18:11 10/21/16 23:20 10/22/16 07:28 Troponin I < 0.015 ng/ml < 0.015 ng/ml Vitamin B12 Level 503 pg/mL Folate > 24.00 ng/mL White Blood Count 4.89 K/uL Red Blood Count 4.48 M/uL Hemoglobin 14.3 g/dL Hematocrit 42.3 % Mean Corpuscular Volume 94.4 fL Mean Corpuscular Hemoglobin 31.9 pg Mean Corpuscular Hemoglobin Concent 33.8 g/dl RDW Standard Deviation 48.0 fL RDW Coefficient of Variation 13.9 % Platelet Count 187 K/uL Mean Platelet Volume 10.3 fL Sodium Level 140 mmol/L Potassium Level 3.7 mmol/L Chloride Level 106 mmol/L Carbon Dioxide Level 26 mmol/L Anion Gap 8.0 mmol/L Blood Urea Nitrogen 10 mg/dl Creatinine 0.95 mg/dl Est Creatinine Clear Calc Drug Dose 95.3 ml/min Estimated GFR () 103.3 Estimated GFR (Non- 89.1 BUN/Creatinine Ratio 10.7 Random Glucose 90 mg/dl Estimated Average Glucose 103 mg/dl Hemoglobin A1c 5.2 % Calcium Level 9.6 mg/dl Total Bilirubin 0.5 mg/dl Aspartate Amino Transf (AST/SGOT) 53 U/L Alanine Aminotransferase (ALT/SGPT) 69 U/L Alkaline Phosphatase 77 U/L Total Protein 7.5 gm/dl Albumin 3.7 gm/dl Globulin 3.8 gm/dl Albumin/Globulin Ratio 1.0 Triglycerides Level 155 mg/dl Cholesterol Level 214 mg/dl HDL Cholesterol 88 mg/dl LDL Cholesterol, Calculated 95 mg/dl VLDL Cholesterol, Calculated 31 mg/dl Cholesterol/HDL Ratio 2.4 Hemoglobin A1c Test 10/22/16 07:28 Range/Units Estimated Average Glucose 103 mg/dl Hemoglobin A1c 5.2 4.5-5.6 % Lipid Panel Test 10/22/16 07:28 Range/Units Triglycerides Level 155 H 0-150 mg/dl Cholesterol Level 214 H 0-200 mg/dl HDL Cholesterol 88 mg/dl Cholesterol/HDL Ratio 2.4 LDL Cholesterol, Calculated 95 mg/dl Medical Emergencies . Who to Call and When: Medical Emergencies: Call 911 immediately if you experience any of the following warning signs and symptoms of Stroke: * Sudden numbness or weakness of the face, arm or leg, especially on one side of the body * Sudden confusion, trouble speaking or understanding * Sudden trouble seeing in one or both eyes * Sudden trouble walking, dizziness, loss of balance or coordination * Sudden severe headache with no cause Do not delay calling 911 if you experience any warning signs or symptoms of a stroke. Delay in seeking medical attention may affect what treatments can be given to you. . Non-Emergent Contact Non-Emergency issues call your: Primary Care Provider . . "Provider Documentation" section prepared by Forest Huertas. . Stroke Core Measures Reason no t-PA for Stroke: Treatment not indicated Reason no antithrom by day 2: Treatment provided - N/A Reason no antithrom at D/C: Treatment provided - N/A Reason no statin at D/C: Treatment provided - N/A Reason no anticoag w/a fib: Treatment not indicated VTE Core Measure Inpt VTE Proph given/why not?: T.E.D. Stockings, SCD's
--- NOTE | 2016-10-22 18:33 | Discharge Summary ---
Discharge Summary Date of Service Oct 22, 2016. Discharge Summary Admission Date: Oct 21, 2016 at 17:14 Discharge Date: Oct 22, 2016 Principal Diagnosis: muscular chest pain Immunizations: Have You Had Influenza Vaccine: N/A History of Tetanus Vaccine?: Yes History of Pneumococcal: Unknown History of Hepatitis B Vaccine: Unknown Procedures: MRI OF THE BRAIN WITHOUT CONTRAST CLINICAL HISTORY: Left facial and leg numbness COMPARISON STUDY: 04/02/2006 FINDINGS: Sagittal T1, axial diffusion, proton density and T2 weighted axial, coronal FLAIR, and axial T1-weighted images were acquired. No intra or extra-axial mass lesions are visualized Axial diffusion-weighted images reveal no evidence of acute or subacute infarction. There is no evidence of ventricular dilatation. Proton density T2-weighted and FLAIR images reveal scattered foci of increased T2 signal within the white matter, likely on a small vessel basis. There are no abnormal flow voids. IMPRESSION: 1. No acute intracranial findings 2. No evidence of intracranial mass in this noncontrast study 3. No evidence of acute or subacute infarction 4. Scattered foci of increased T2 signal within the white matter, similar to the prior study, and likely on a small vessel basis. Electronically signed by: Alexis Taveras M.D. 10/22/2016 2:57 PM Dictated Date/Time: 10/22/2016 2:54 PM Interpretation Summary * Name: EDSON BOLTON Study Date: 10/22/2016 10:29 AM BP: 150/90 mmHg * Patient Location: [facility] HR: 78 * : 1960 (M/d/yyyy) Gender: Male Height: 72 in * Age: 56 yrs Ethnicity: CA Weight: 202 lb * Ordering Physician: Domi Limon * Referring Physician: LESLEY * Performed By: Grecia Lerner RDCS * * Reason For Study: CHEST PAIN * BSA: 2.1 m2 * -- Conclusions -- * Stress Echo: * 1. No definite ischemic changes noted on exercise stress echo at 86% MPHR. * 2. Negative exercise ECG for ischemia at 86 % MPHR. * 3. Borderline hypertensive blood pressure response to exercise. * 4. No arrhythmia. * 5. Study terminated due to fatigue. Chest pain was present prior to stress test and remained constant throughout. * 6. Fair exercise tolerance. * Echo: * 1. Normal left ventricular size and systolic function. EF 55-60 %. No regional wall motion abnormalities. No left ventricular hypertrophy. Type 1 diastolic dysfunction. * 2. No significant valvular abnormalities. Procedure Details * ECHOEX, CPT #69681 * A contrast injection of Definity was performed to improve assessment of LV function. * Contrast was injected into an intravenous site in the right arm. * One vial of Definity ultrasound contrast was diluted in normal saline to a total volume of 10 ml. A total of '4' ml of solution was administered during imaging. * Lot # [id number] of Definity utilized for procedure. * Expiration date NOV 29. * The attending nurse who injected the contrast agent was BARAK CALL RN. Left Ventricle * The left ventricle is normal in size. * There is normal left ventricular wall thickness. * Left ventricular systolic function is normal. * There were no new wall motion abnormalities following exercise. Systolic function a improved slightly. * Resting wall motion: Normal. Stress wall motion: Appropriate increase in Left ventricular systolic function and decrease in cavity size. No stress induced segmental wall motion abnormalities. Right Ventricle * The right ventricle is normal in size and function. * The right ventricular systolic function is normal as assessed by tricuspid annular plane systolic excursion (TAPSE) (normal >1.5 cm). Atria * The left atrial size is normal. * Right atrial size is normal. * There is no evidence of atrial septal defect, but resolution does not allow assessment for a patent foramen ovale. Mitral Valve * The mitral valve leaflets appear normal. There is no evidence of stenosis, fluttering, or prolapse. * Significant mitral regurgitation is absent. Tricuspid Valve * The tricuspid valve is not well visualized, but is grossly normal. * There is no tricuspid stenosis. * Significant tricuspid regurgitation is absent. Aortic Valve * The aortic valve is trileaflet. * No hemodynamically significant valvular aortic stenosis. * No aortic regurgitation is present. Pulmonic Valve * The pulmonary valve is inadequately visualized, but the Doppler data is adequate for interpretation. * Trace pulmonic valvular regurgitation. Great Vessels * The aortic root is normal size. * Normal IVC size and inspiratory collapse. Pericardium * There is no pericardial effusion. Stress Parameters * NSR at 73 BPM. * Stress ECG: No ST changes. No arrhythmias. * No arrhythmia were noted with stress. * Rest heart rate was '78' BPM. * Rest blood pressure was '150/90' * Maximum heart rate achieved was 144 bpm. * Maximum heart rate was 86 % of maximum age-predicted heart rate. * Total exercise time was '8:30' * Maximum treadmill speed was '3.40' miles per hour. * Maximum treadmill elevation was '14.00'% grade. * Exercise was terminated due to 'ACHIEVING TARGET HR' * Maximum blood pressure was '190/100' LEFT LOWER EXTREMITY VENOUS DOPPLER CLINICAL HISTORY: Left calf pain. SOB with exertion COMPARISON STUDY: No previous studies for comparison. TECHNIQUE: Sonography of the deep venous system of the left lower extremity was performed. Compression and augmentation were evaluated. FINDINGS: The common femoral, superficial femoral and popliteal veins were compressible. Augmentation was normal. Flow was shown within the deep calf vessels. IMPRESSION: No evidence of deep venous thrombus within the left lower extremity. Electronically signed by: Tonio Charles M.D. 10/21/2016 3:11 PM Dictated Date/Time: 10/21/2016 3:11 PM CHEST ONE VIEW PORTABLE HISTORY:56 yearsMaleacute chest pain and numbness. COMPARISON: 08/14/2010 TECHNIQUE: Portable upright AP view of the chest FINDINGS: Cardiomediastinal and hilar silhouettes are within normal limits. No pneumothorax, pleural effusion, focal airspace consolidation or overt pulmonary edema. Bones are grossly intact. IMPRESSION: No acute cardiopulmonary process. LEFT RIBS UNILATERAL MIN 2 VIEWS CLINICAL HISTORY: L Sided Chest Pain pain. Trauma. COMPARISON STUDY: None FINDINGS: Nondisplaced cortical fracture anterior left eighth rib. Remaining ribs are unremarkable. No evidence of pneumothorax. IMPRESSION: Nondisplaced cortical fracture anterior left eighth rib. Electronically signed by: Cory Ortiz M.D. 10/22/2016 9:06 AM Dictated Date/Time: 10/22/2016 9:04 AM Last 24 Hours Test 10/21/16 23:20 10/22/16 07:28 Troponin I < 0.015 ng/ml White Blood Count 4.89 K/uL Red Blood Count 4.48 M/uL Hemoglobin 14.3 g/dL Hematocrit 42.3 % Mean Corpuscular Volume 94.4 fL Mean Corpuscular Hemoglobin 31.9 pg Mean Corpuscular Hemoglobin Concent 33.8 g/dl RDW Standard Deviation 48.0 fL RDW Coefficient of Variation 13.9 % Platelet Count 187 K/uL Mean Platelet Volume 10.3 fL Sodium Level 140 mmol/L Potassium Level 3.7 mmol/L Chloride Level 106 mmol/L Carbon Dioxide Level 26 mmol/L Anion Gap 8.0 mmol/L Blood Urea Nitrogen 10 mg/dl Creatinine 0.95 mg/dl Est Creatinine Clear Calc Drug Dose 95.3 ml/min Estimated GFR () 103.3 Estimated GFR (Non- 89.1 BUN/Creatinine Ratio 10.7 Random Glucose 90 mg/dl Estimated Average Glucose 103 mg/dl Hemoglobin A1c 5.2 % Calcium Level 9.6 mg/dl Total Bilirubin 0.5 mg/dl Aspartate Amino Transf (AST/SGOT) 53 U/L Alanine Aminotransferase (ALT/SGPT) 69 U/L Alkaline Phosphatase 77 U/L Total Protein 7.5 gm/dl Albumin 3.7 gm/dl Globulin 3.8 gm/dl Albumin/Globulin Ratio 1.0 Triglycerides Level 155 mg/dl Cholesterol Level 214 mg/dl HDL Cholesterol 88 mg/dl LDL Cholesterol, Calculated 95 mg/dl VLDL Cholesterol, Calculated 31 mg/dl Cholesterol/HDL Ratio 2.4 Medication Reconciliation New Medications: Aspirin (Aspirin EC Low Dose) 81 Mg Ectab 81 MG PO QAM, #30 TAB Atorvastatin (Atorvastatin Calcium) 40 Mg Tab 40 MG PO HS, #30 TAB Continued Medications: Allopurinol (Zyloprim) 300 Mg Tab 300 MG PO DAILY, TAB Multiple Vitamin (Multivitamin) 1 Tab Tab 1 TABLET PO DAILY, TAB Ranitidine Hcl (Ranitidine Hcl) 150 Mg Cap 150 MG PO BID Solifenacin Succinate (Vesicare) 10 Mg Tab 10 MG PO DAILY, TAB Discontinued Medications: Simvastatin (Zocor) 20 Mg Tab 20 MG PO QPM, TAB Discharge Exam Physical Exam: General Appearance: no apparent distress Eyes: EOMI Neck: trachea midline Respiratory/Chest: no respiratory distress, no accessory muscle use, + pertinent finding (msk - left upper chest wall in area of pec major high tone/ tender/decreased ROM - LAS - improved some, pt tolerated well) Extremities: normal inspection 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 stretches taught. OMT done. f/u PCP. due to high risks (male, age, HTN, hyperlipid, fam hx, smoking) - stress echo to r/o atypical presentation of angina - fortunately reassuring L sided numbness - similar to chest pain, seemed clinically unlikely to be CVA but high risk - MRI no stroke. likely DJD/DDD and "wear and tear" related. somatic dysfunction rib region - OMT as above hyperlipidemia - see below, changed to atorvastatin high risk for vascular disease - fortunately neg stress echo and neg MRI, but as outlined above, still quite high risk - discussed risks/benefits- appears would benefit from more potent statin and low risk of problems - change to 40mg atorvastatin; add 81mg asa (discussed risks/benefits of this as well - he sees rationale for both change to atorvastatin and adding asa and agrees, knows what to watch for as far as problems, and will f/u PCP) very mild transaminitis - outpt f/u Total Time Spent: Greater than 30 minutes This includes examination of the patient, discharge planning, medication reconciliation, and communication with other providers. Discharge Instructions Please refer to the electronic Patient Visit Report (Discharge Instructions) for additional information. Additional Copies To Claudio De La Rosa M.D.
[2016-10-22] MEDS ORDERED: ATORVASTATIN 40 MG TAB PO SCH (21:00)
== END 2016-10-22 16:15 | disposition home or self-care (01) ==
LOC: C.EDB 11:06 → C.2T 17:14 → ENRESERV 17:24
PROVIDERS: ADMIT Family Medicine; ATTEND Family Medicine
DX: R07.89 Other chest pain (principal); D64.9 Anemia, unspecified; F12.90 Cannabis use, unspecified, uncomplicated; E78.00 Pure hypercholesterolemia, unspecified; G47.33 Obstructive sleep apnea (adult) (pediatric); K21.9 Gastro-esophageal reflux disease without esophagitis; E78.5 Hyperlipidemia, unspecified; Z83.6 Family history of other diseases of the respiratory system; Z80.0 Family history of malignant neoplasm of digestive organs; Z82.49 Family history of ischemic heart disease and other diseases of the circulatory system; Z82.3 Family history of stroke; Z87.891 Personal history of nicotine dependence; Z79.899 Other long term (current) drug therapy; Z72.89 Other problems related to lifestyle

== ENCOUNTER → 2017-05-09 | Outpatient (CLI) | payer OTHER ==
[~2017-05-09] VITALS: Ht 182.9 cm; Wt 95.8 kg
[~2017-05-09] MED LIST changes: +ASPEC81 PO; +LPT40 PO; -SIMV20TA2 PO
[2017-05-09 15:52] VITALS: BP 129/85; PULSE 74; Ht 182.9 cm; Wt 95.8 kg
== END | disposition home or self-care (01) ==
LOC: C.NEUR 15:37
PROVIDERS: ATTEND Internal Medicine Pulmonary Disease
DX: G47.30 Sleep apnea, unspecified (principal); G47.31 Primary central sleep apnea; G47.00 Insomnia, unspecified

== ENCOUNTER → 2017-07-02 | Outpatient (CLI) | payer OTHER ==
--- NOTE | 2017-07-02 15:11 | DIAGNOSTIC IMAGING REPORT ---
ABDOMEN ULTRASOUND FOR HERNIA CLINICAL HISTORY: R10.9 right Abdominal pain [id number] COMPARISON STUDY: Abdomen and pelvis CT 03/01/2011. FINDINGS: Real-time sonographic imaging of the right periumbilical abdominal wall was performed. No hernia, mass, or fluid collections identified. IMPRESSION: No hernia, masses, or fluid collections within the right periumbilical abdominal wall. Electronically signed by: Sal Durham M.D. 07/02/2017 3:10 PM Dictated Date/Time: 07/02/2017 3:09 PM
== END | disposition home or self-care (01) ==
LOC: C.ULTR 14:41
PROVIDERS: ATTEND Internal Medicine
DX: R10.9 Unspecified abdominal pain (principal)

== ENCOUNTER → 2017-07-07 | Outpatient (CLI) | payer OTHER ==
[~2017-07-07] MED LIST changes: +OPTIRAY 320 IV PRN
--- NOTE | 2017-07-07 16:27 | DIAGNOSTIC IMAGING REPORT ---
ABD/PELVIS IV AND ORAL CONT CLINICAL HISTORY: 57 years-old Male presenting with R19.00 Mass of [id number]. TECHNIQUE: Multidetector CT of the abdomen and pelvis was performed after the administration of oral and intravenous contrast. IV contrast: 90 mL of Optiray 320. A dose lowering technique was used consistent with the principles of ALARA (as low as reasonably achievable). COMPARISON: 08/14/2010. CT DOSE (mGy.cm): The estimated cumulative dose is 789.12 mGy.cm. FINDINGS: Purchasing Manager topogram: A marker projects over the right lower quadrant. Lung bases: Emphysematous changes at the lung bases. Normal heart size. Coronary artery calcification. No pericardial or pleural effusion. Liver: Normal morphology. No liver lesion. Patent hepatic vasculature. Biliary: No intrahepatic or extrahepatic biliary ductal dilatation. Normal gallbladder. Pancreas: Normal. Spleen: Normal. Adrenal glands: Normal. Kidneys and ureters: Few subcentimeter hypodensities in the kidneys, indeterminate but likely cysts. No hydronephrosis. Prominent lobulation of the renal contours likely indicate persistent lobulations. Nonobstructing 4 mm calculus at the upper pole the left kidney. Ureters normal. Bladder: Incompletely evaluated secondary to underdistention. The bladder may be circumferentially thick-walled. Pelvic organs: Prostate and seminal vesicles normal. Bowel: Postsurgical changes of appendectomy. No bowel obstruction. Peritoneal cavity: No free fluid or intraperitoneal gas. Lymph nodes: Few subcentimeter prominent lymph nodes in the portacaval region and jeff hepatis, likely reactive. No pathologically enlarged lymph nodes by CT size criteria. Vasculature: Atherosclerosis of the normal caliber abdominal aorta. IVC patent. Abdominal wall: Surgical changes of the periumbilical region. A marker is noted over the right lower quadrant. At this site, no subjacent mass or abnormality apart from postsurgical changes and granulation tissue from prior ventral hernia repair. No fluid collection. No subcutaneous inflammatory change. Musculoskeletal: Degenerative changes of the spine. IMPRESSION: 1. Postsurgical changes of ventral hernia repair with granulation tissue. This potentially may correlate with the patient's symptomatology as no other abnormality is identified subjacent to the marker. No associated fluid or inflammatory change with the ventral hernia repair. 2. Nonobstructing 4 mm left renal calculus. 3. Postsurgical changes of appendectomy. 4. Emphysema. Electronically signed by: Jr Nur M.D. 07/07/2017 4:26 PM Dictated Date/Time: 07/07/2017 4:19 PM
== END | disposition home or self-care (01) ==
LOC: C.CTS 14:32
PROVIDERS: ATTEND Internal Medicine
DX: R19.00 Intra-abdominal and pelvic swelling, mass and lump, unspecified site (principal)

== ENCOUNTER 2018-08-26 09:04 | Inpatient (IN) ==
[2018-08-26] MEDS ORDERED: KETOROLAC TROMETHAMINE 15 MG/ML VIAL IV STA (09:37)
[2018-08-26] MEDS ORDERED: SODIUM CHLORIDE 0.9% 1000ML 1,000 ML IV SCH (09:45)
[2018-08-26] MEDS ORDERED: MoRPHine SULFATE 10 MG/ML CARP/VIAL IV STA (10:05)
[2018-08-26 10:07] LABS: Basophils # (auto) 0.02 K/uL (0-0.2); Basophils % (auto) 0.3 %; Eosinophils # (auto) 0.05 K/uL (0-0.5); Eosinophils % (auto) 0.6 %; Hematocrit (blood only) 39.9 % (42-52); Hemoglobin 14.1 g/dL (14.0-18.0); Immature Granulocytes # (auto) 0.02 K/uL (0.00-0.02); Immature Granulocytes % (auto) 0.3 %; Lymphocytes # (auto) 1.11 K/uL (1.2-3.4); Lymphocytes % (auto) 14.1 %; Mean Corpuscular Hgb Conc 35.3 g/dL (32-36); Mean Corpuscular Volume 88.5 fL (80-100); Mean Platelet Volume 10.6 fL (7.4-10.4); Monocytes % (auto) 10.2 %; Neutrophils # (auto) 5.88 K/uL (1.4-6.5); Neutrophils % (auto) 74.5 %; Platelet Count 205 K/uL (130-400); RDW Coefficient of Variation 15.2 % (11.5-14.5); Red Blood Count 4.51 M/uL (4.7-6.1); White Blood Count 7.88 K/uL (4.8-10.8)
[2018-08-26 10:13] LABS: Albumin Level 3.7 gm/dl (3.4-5.0); BUN Creatinine Ratio 23.8 (10-20); Calcium 9.2 mg/dl (8.5-10.1); Creatinine Clr Calc Pharmacy 101.1 ml/min; Est GFR (African American) 100.6; Est GFR (Non-African American) 86.8; Potassium 4.1 mmol/L (3.5-5.1)
[2018-08-26 10:15] LABS: Albumin Globulin Ratio 0.9 (0.9-2); Bilirubin,Total 0.3 mg/dl (0.2-1); Total Protein 7.7 gm/dl (6.4-8.2)
[2018-08-26 10:52] LABS: Appearance Urine Clear (Clear); Bilirubin Urine Negative (Negative); Blood Urine Negative (Negative); Color Urine Yellow; Glucose Urine UA Negative (Negative); Ketones Urine Negative (Negative); Leukocyte Esterase Urine Negative (Negative); Nitrite Urine Negative (Negative); Protein Urine Negative (Negative); Specific Gravity Urine 1.023 (1.000-1.030); Urobilinogen Urine Negative (Negative)
--- NOTE | 2018-08-26 12:54 | Ultrasound Report ---
US gallbladder CLINICAL HISTORY: 58 years-old Male presenting with ruq pain. TECHNIQUE: Real-time grayscale and limited color Doppler ultrasound imaging of the abdomen limited to the right upper quadrant was performed. COMPARISON: CT from 05/26/2018. FINDINGS: Pancreas: Visualized portions of the pancreatic head and body normal. Liver: Normal echogenicity and echotexture. The liver measures 20.2 cm in maximal sagittal dimension. No sonographic evidence of hepatic mass. Main portal vein patent with normal directional flow. Biliary: No intrahepatic biliary ductal dilatation. Common bile duct measures up to 4 mm in diameter. Gallbladder: No evidence of gallstones, gallbladder wall thickening, gallbladder distention, or peric holecystic fluid or inflammatory change. Sonographic Booker's sign negative. Right kidney: Normal in appearance without evidence of hydronephrosis. Ascites: None. Other: None. IMPRESSION: Hepatomegaly. No cholelithiasis or biliary ductal dilatation. Electronically signed by: Jr Nur M.D. 08/26/2018 12:52 PM
[2018-08-26] MEDS ORDERED: OPTIRAY 320 125ml IV PRN (13:39)
--- NOTE | 2018-08-26 13:56 | CT Scan Report ---
CT angio chest PE protocol CLINICAL HISTORY: 58 years-old Male presenting with right flank pain, clinical concern for pulmonary bolus. TECHNIQUE: Multidetector CT angiography of the chest was performed after administration of intravenou s contrast. 3-D volumetric and/or maximum intensity projection (MIP) images were subsequently reconst ructed for review. IV contrast: 119 mL of Optiray 320. One or more dose lowering techniques were used consistent with the principles of ALARA (as low as reasonably achievable), including automatic expos ure control, mA or kV adjustment to individual patient size, and/or use of iterative reconstruction. COMPARISON: Noncontrast CT chest from 10/06/2017. CT DOSE (mGy.cm): The estimated cumulative dose is 1343.26 mGy.cm. FINDINGS: [employer] topogram: Unremarkable. Pulmonary vasculature: The study is adequate for assessment of the pulmonary vascular tree. Limited acute pulmonary emboli i n the medial basal subsegmental pulmonary arteries of the right lower lobe. No other pulmonary emboli are identified. Main pulmonary artery is not enlarged. No flattening of the interventricular septum. No intracardiac filling defect. No reflux of contrast into the hepatic veins. Remaining chest: Soft tissues: Normal thyroid and thoracic inlet. Gynecomastia. No axillary, supraclavicular, mediasti nal, or hilar lymphadenopathy. Atherosclerosis of the aorta. Normal heart size. Coronary artery calci fication. Trace right pleural effusion. Upper abdomen normal. Lungs and airways: No pneumothorax. Central airways patent. Pulmonary arteries mildly enlarged relati ve to adjacent bronchi. Mild interlobular septal thickening evident at the lung bases. Dependent grou ndglass and solid consolidation at the lung bases likely atelectasis, which is fairly extensive. Uppe r lobe predominant centrilobular emphysema. Musculoskeletal: Degenerative changes of the spine. IMPRESSION: 1. Acute subsegmental pulmonary embolus in the right lower lobe. No CT evidence of right heart strai n. 2. Extensive bibasilar atelectasis. 3. Trace right pleural effusion. 4. Underlying emphysema. The report will be called/faxed according to standard departmental protocol. Electronically signed by: Jr Nur M.D. 08/26/2018 1:55 PM
--- NOTE | 2018-08-26 14:06 | CT Scan Report ---
ABDOMEN AND PELVIS CT WITH IV CONTRAST CT DOSE: HISTORY: right flank pain TECHNIQUE: Multiaxial CT images of the abdomen and pelvis were performed following the use of intrave nous contrast. A dose lowering technique was utilized adhering to the principles of ALARA. COMPARISON STUDY: Abdomen and pelvis CT 05/26/2018. FINDINGS: Bibasilar linear densities likely representing subsegmental atelectasis. No pneumoperitoneu m. No pneumatosis. No fractures within the visualized osseous structures. Trace right pleural effusio n. The liver, gallbladder, pancreas, spleen, adrenal glands, and right kidney are unremarkable. There is a punctate stone within the upper pole of the left kidney. There are are a few small hypodense le sions within the left kidney with the largest measuring 9 mm. These are technically too small to deann acterize favor cysts. These remain unchanged. No retroperitoneal lymphadenopathy. Prior midline abdom inal wall incision. The bladder is unremarkable. There is a 4.0 x 2.2 cm cystic focus adjacent to the left external iliac vessels. This may represent a small amount of loculated fluid and is new from th e prior study. A few colonic diverticula. No evidence for diverticulitis. No bowel wall thickening or obstruction. The appendix is not identified and reportedly surgically absent. IMPRESSION: 1. Left-sided nephrolithiasis. No ureteral stones. No hydronephrosis. 2. No bowel wall thickening or obstruction. 3. Colonic diverticulosis. 4. Trace right pleural effusion. 5. There is a new 4.0 x 2.2 cm cystic focus adjacent to the left external iliac vessels. This may rep resent a small amount of loculated fluid from the prior study. However, follow-up pelvis CT in one mo [facility] is recommended to ensure resolution. Electronically signed by: Sal Durham M.D. 08/26/2018 2:05 PM
[2018-08-26] MEDS ORDERED: HEPARIN 25000 UNIT/500 ML D5W IV ONE (15:03)
[2018-08-26] MEDS ORDERED: HEPARIN SOD (PORCINE) 1000 UNIT/ML 10 ML VIAL ONE (15:03)
--- NOTE | 2018-08-26 15:25 | History & Physical Report ---
Date of Service August 26, 2018 Assessment & Plan (1) Pulmonary embolism: Found in the right lower lobe, subsegmental, likely cause of his pleuritic right-sided chest pain. He is not hypoxic and is hemodynamically stable. Doppler of lower extremities negative bilaterally. Most likely due to recent surgery -Admit to medical floor with telemetry -Check echocardiogram to rule out right-sided heart strain -Start heparin drip-discussed anticoagulation options with patient and he will think about what he would like-we will place case management consultation to chávez out the cost of Eliquis if he chooses that over Coumadin -Would recommend anticoagulation for 3 to 6 months-he no longer has prostate cancer as it was removed, however margins were positive on pathology report and urology in the last outpatient note did recommend close follow-up with high- sensitivity PSA because of this -Pain control with morphine as needed -Incentive spirometry every hour while awake -If pain is controlled and doing well by tomorrow, could be discharged home (2) Right flank pain: Secondary to pulmonary emboli as above -Pain control with morphine as needed (3) Anxiety: Stable -Not on medications at home but does vape marijuana (4) Asthma: Stable -Continue home Symbicort, leave albuterol as needed (5) Chronic back pain: Stable Usually vapes marijuana for this but cannot do that here in the hospital (6) Dyslipidemia: -Continue atorvastatin (7) Erectile dysfunction: Holding home sildenafil (8) GERD (gastroesophageal reflux disease): With a history of Pike's esophagus -Continue PPI and routine surveillance with GI (9) Gout: Continue home allopurinol (10) Hx of Clostridium difficile infection: 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 twice weekly -No evidence of diarrhea at this time (11) Insomnia: Severe, sees sleep medicine -Continue Ambien CR 12.5 mg nightly to be brought in from home (12) Prostate cancer: History of prostatectomy as above -Follows with urology (13) Sleep apnea: Severe, central sleep apnea -Uses BiPAP 10/5 with a back-up rate of 10 -His will bring in his BiPAP from home (14) Abnormal CT scan, pelvis: Loculated fluid collection seen next to the left external iliac vessels it is 4.0 x 2.2 cm-radiology recommends follow-up pelvis CT in 1 month-seems to be likely related to recent surgery but unclear? (15) DVT prophylaxis: Heparin drip Disposition-admit to medical floor with telemetry Full code History of Present Illness Chief Complaint: Right-sided back pain Primary Care Provider: Claudio De La Rosa MD This patient is a 58-year-old male with a history of prostate cancer status post prostatectomy 05/2017, central YAIMA on BiPAP, insomnia, asthma, anxiety disorder, GERD with Pike's, gout, HL, ED, lumbar DDD, and recurrent C. difficile colitis who presents to the ER with 1-2 days of worsening right sided mid back pain that was worse with deep inspiration. He was not able to sleep all last night due to the pain. He denies shortness of breath or substernal chest pain. Denies lightheadedness or cough. Denies hemoptysis. Denies fevers/chills/sweats. He had his prostatectomy in 05/2018, but otherwise denies any recent travel, no history of DVT or PE in the past. He was found in the ER on CT angiogram of the chest to have subsegmental PEs in the right lower lobe. He was not hypoxic and there is no evidence on CT imaging of right heart strain. His blood pressure was within normal limits. His pain was improved with receiving morphine and Toradol. Allergies Allergy/AdvReac Type Severity Reaction Status Date / Time No Known Allergies Allergy Unknown Verified 08/26/18 11:03 Home Medications Home Medications Medication Instructions Recorded Confirmed Type Centrum 1 tab PO DAILY 03/19/18 08/26/18 History allopurinol 300 mg PO QAM 03/19/18 08/26/18 History budesonide-formoterol 1 puff INHALATION BID 03/19/18 08/26/18 History levalbuterol tartrate 2 inh INHALATION Q4 PRN 03/19/18 08/26/18 History omeprazole 20 mg PO QPM 03/19/18 08/26/18 History ranitidine HCl 150 mg PO BID 03/19/18 08/26/18 History zolpidem 12.5 mg PO HS 03/19/18 08/26/18 History atorvastatin 40 mg PO HS #30 tab 03/21/18 08/26/18 Rx Florastor 1 dose pk PO DAILY 04/27/18 08/26/18 History Medical Marijuana 1 dose INHALATION BID 05/04/18 08/26/18 History vancomycin 125 mg PO Q2D 08/26/18 08/26/18 History Past Med/Surg History Medical History Right flank pain Nausea and vomiting after administration of anesthetic agent (Resolved) NOT EVERY TIME History of infection (Resolved) MAR 2018 FOLLOWING PROSTATE BX...RESOLVED Chronic back pain History of anesthesia reaction "EXTREMELY HIGH TOLERANCE, NOT ENOUGH MEDICINE TO GET HIM DOWN" Anxiety (Chronic) Dyslipidemia (Chronic) Insomnia (Chronic) Prostate cancer (Chronic) Anemia (Resolved) Asthma Barretts esophagus Erectile dysfunction GERD (gastroesophageal reflux disease) Gout Hx of Clostridium difficile infection Sleep apnea Central, severe-uses BiPAP 01/16 with a back-up rate of 10 Surgical History History of prostate biopsy History of colonoscopy History of endoscopy H/O hernia repair x2 abdomen Hx of appendectomy H/O sinus surgery History of nasal septoplasty History of prostatectomy History of tonsillectomy H/O inguinal hernia repair (Resolved) H/O umbilical hernia repair (Resolved) History of appendectomy (Resolved) History of nasal septoplasty (Resolved) History of tonsillectomy (Resolved) History of lumbar surgery NO HARDWARE , X2 Family History Mother Stroke 15 strokes Father COPD (chronic obstructive pulmonary disease) Social History Preferred Language: Greenlandic Communication Ability: Effective Communication Tools: Writing Tablet Net Software Architect Required: No Beliefs That Will Affect Care: None marital status: Current Living Situation: Spouse current occupational status: disabled Other Information That Helps Us Care for You: No Feels Safe at Home: Yes Safety Concerns: Feels Safe At This Time Smoking Status: Former smoker Tobacco Type: cigarettes Cigarettes Per Day: Quit around 2003. Smoked 2-3 ppd x 30 years. Do You Dip or Chew Tobacco: No Hx Alcohol Use: Yes Alcohol type: hard liquor Hx Substance Use: Yes substance use type: marijuana Substance Use Type Other:: Medically prescribed, uses vapor delivery and/or gtt's Last Used Substance Other:: last hs Review of Systems Review of Systems: All systems reviewed & are unremarkable except as noted in HPI & below (Has a remote history of peptic ulcer bleeding, no current melena or hematochezia, no hematemesis, no hematuria) Physical Exam Constitutional: WD/WN, vitals as above Eyes: PERRL, conjunctivae normal, anicteric sclerae ENMT: external ear and nose normal, oropharynx normal Neck: trachea midline, no thyromegaly Respiratory: normal respiratory effort, lungs clear to auscultation Cardiovascular: RRR, no murmur, no edema Gastrointestinal (Abdomen): normal bowel sounds, soft, nontender, no hepatosplenomegaly Musculoskeletal: Extremities: extremities normal to inspection; no cyanosis and no clubbing Skin: no rashes, warm and dry Neurologic: moves all extremities and awake; no focal motor deficits Psychiatric: A+Ox3, euthymic affect Results & Data Vital Signs (Past 12 Hours) Vital Signs Temp Pulse Pulse Resp BP BP Pulse Ox 08/26/18 13:44 75 18 123/75 97 08/26/18 10:36 79 17 121/73 94 08/26/18 09:54 95 08/26/18 09:11 37.1 C 76 18 128/88 94 Laboratory Results 08/26/18 08/26/18 08/26/18 Range/Units 21:28 14:44 10:38 WBC (4.8-10.8) K/uL RBC (4.7-6.1) M/uL Hgb (14.0-18.0) g/dL Hct (42-52) % MCV (80-100) fL MCH (25-34) pg MCHC (32-36) g/dL RDW Std Deviation (36.4-46.3) fL RDW Coeff of Sher (11.5-14.5) % Plt Count (130-400) K/uL MPV (7.4-10.4) fL Immature Gran % (Auto) % Neut % (Auto) % Lymph % (Auto) % [place] % (Auto) % Eos % (Auto) % Baso % (Auto) % Immature Gran # (Auto) (0.00-0.02) K/uL Neut # (Auto) (1.4-6.5) K/uL Lymph # (Auto) (1.2-3.4) K/uL [place] # (Auto) (0.11-0.59) K/uL Eos # (Auto) (0-0.5) K/uL Baso # (Auto) (0-0.2) K/uL APTT 50.4 H* 27.0 (21.0-31.0) Seconds PTT Ratio 1.9 1.0 Sodium (136-145) mmol/L Potassium (3.5-5.1) mmol/L Chloride (98-107) mmol/L Carbon Dioxide (21-32) mmol/L Anion Gap (3-11) BUN (7-18) mg/dl Creatinine (0.6-1.4) mg/dl Est Cr Clr Drug Dosing ml/min Est GFR ( Amer) Est GFR (Non-Af Amer) BUN/Creatinine Ratio (10-20) Glucose (70-99) mg/dl Calcium (8.5-10.1) mg/dl Total Bilirubin (0.2-1) mg/dl AST (15-37) U/L ALT (12-78) U/L Alkaline Phosphatase (45-117) U/L Troponin I (0-0.045) ng/ml Total Protein (6.4-8.2) gm/dl Albumin (3.4-5.0) gm/dl Globulin (2.5-4.0) gm/dl Albumin/Globulin Ratio (0.9-2) Lipase (73-393) U/L Urine Color Yellow Urine Appearance Clear (Clear) Urine pH 7.0 (4.5-7.5) Ur Specific [place] 1.023 (1.000-1.030) Urine Protein Negative (Negative) Urine Glucose (UA) Negative (Negative) Urine Ketones Negative (Negative) Urine Blood Negative (Negative) Urine Nitrite Negative (Negative) Urine Bilirubin Negative (Negative) Urine Urobilinogen Negative (Negative) Ur Leukocyte Esterase Negative (Negative) 08/26/18 08/26/18 08/26/18 Range/Units 09:41 09:41 09:41 WBC 7.88 (4.8-10.8) K/uL RBC 4.51 L (4.7-6.1) M/uL Hgb 14.1 (14.0-18.0) g/dL Hct 39.9 L (42-52) % MCV 88.5 (80-100) fL MCH 31.3 (25-34) pg MCHC 35.3 (32-36) g/dL RDW Std Deviation 49.0 H (36.4-46.3) fL RDW Coeff of Sher 15.2 H (11.5-14.5) % Plt Count 205 (130-400) K/uL MPV 10.6 H (7.4-10.4) fL Immature Gran % (Auto) 0.3 % Neut % (Auto) 74.5 % Lymph % (Auto) 14.1 % [place] % (Auto) 10.2 % Eos % (Auto) 0.6 % Baso % (Auto) 0.3 % Immature Gran # (Auto) 0.02 (0.00-0.02) K/uL Neut # (Auto) 5.88 (1.4-6.5) K/uL Lymph # (Auto) 1.11 L (1.2-3.4) K/uL [place] # (Auto) 0.80 H (0.11-0.59) K/uL Eos # (Auto) 0.05 (0-0.5) K/uL Baso # (Auto) 0.02 (0-0.2) K/uL APTT (21.0-31.0) Seconds PTT Ratio Sodium 138 (136-145) mmol/L Potassium 4.1 (3.5-5.1) mmol/L Chloride 106 (98-107) mmol/L Carbon Dioxide 26 (21-32) mmol/L Anion Gap 6.0 (3-11) BUN 23 H (7-18) mg/dl Creatinine 0.96 (0.6-1.4) mg/dl Est Cr Clr Drug Dosing 101.1 ml/min Est GFR ( Amer) 100.6 Est GFR (Non-Af Amer) 86.8 BUN/Creatinine Ratio 23.8 H (10-20) Glucose 101 H (70-99) mg/dl Calcium 9.2 (8.5-10.1) mg/dl Total Bilirubin 0.3 (0.2-1) mg/dl AST 14 L (15-37) U/L ALT 27 (12-78) U/L Alkaline Phosphatase 76 (45-117) U/L Troponin I < 0.015 (0-0.045) ng/ml Total Protein 7.7 (6.4-8.2) gm/dl Albumin 3.7 (3.4-5.0) gm/dl Globulin 4.0 (2.5-4.0) gm/dl Albumin/Globulin Ratio 0.9 (0.9-2) Lipase 121 (73-393) U/L Urine Color Urine Appearance (Clear) Urine pH (4.5-7.5) Ur Specific [place] (1.000-1.030) Urine Protein (Negative) Urine Glucose (UA) (Negative) Urine Ketones (Negative) Urine Blood (Negative) Urine Nitrite (Negative) Urine Bilirubin (Negative) Urine Urobilinogen (Negative) Ur Leukocyte Esterase (Negative) Diagnostic Findings RUQ ultrasound: IMPRESSION: Hepatomegaly. No cholelithiasis or biliary ductal dilatation. ABDOMEN AND PELVIS CT WITH IV CONTRAST CT DOSE: HISTORY: right flank pain TECHNIQUE: Multiaxial CT images of the abdomen and pelvis were performed following the use of intravenous contrast. A dose lowering technique was utilized adhering to the principles of ALARA. COMPARISON STUDY: Abdomen and pelvis CT 05/26/2018. FINDINGS: Bibasilar linear densities likely representing subsegmental atelectasis. No pneumoperitoneum. No pneumatosis. No fractures within the visualized osseous structures. Trace right pleural effusion. The liver, gallbladder, pancreas, spleen, adrenal glands, and right kidney are unremarkable. There is a punctate stone within the upper pole of the left kidney. There are are a few small hypodense lesions within the left kidney with the largest measuring 9 mm. These are technically too small to characterize favor cysts. These remain unchanged. No retroperitoneal lymphadenopathy. Prior midline abdominal wall incision. The bladder is unremarkable. There is a 4.0 x 2.2 cm cystic focus adjacent to the left external iliac vessels. This may represent a small amount of loculated fluid and is new from the prior study. A few colonic diverticula. No evidence for diverticulitis. No bowel wall thickening or obstruction. The appendix is not identified and reportedly surgically absent. IMPRESSION: 1. Left-sided nephrolithiasis. No ureteral stones. No hydronephrosis. 2. No bowel wall thickening or obstruction. 3. Colonic diverticulosis. 4. Trace right pleural effusion. 5. There is a new 4.0 x 2.2 cm cystic focus adjacent to the left external iliac vessels. This may represent a small amount of loculated fluid from the prior study. However, follow-up pelvis CT in one month is recommended to ensure resolution. CT angiogram chest: IMPRESSION: 1. Acute subsegmental pulmonary embolus in the right lower lobe. No CT evidence of right heart strain. 2. Extensive bibasilar atelectasis. 3. Trace right pleural effusion. 4. Underlying emphysema. Bilateral lower extremity venous Doppler: Negative for DVT bilaterally ECG Rate (beats per minute): 70 Rhythm: sinus rhythm Findings: + 1st degree AV block Additional Comments: No ischemic changes Code Status & VTE Plan Code Status Full code VTE Prophylaxis Plan VTE Prophylaxis will be ordered: Yes (1) Pulmonary embolism Acute cor pulmonale presence: without acute cor pulmonale Chronicity: acute Pulmonary embolism type: unspecified Qualified Code(s): I26.99 - Other pulmonary embolism without acute cor pulmonale
--- NOTE | 2018-08-26 15:51 | Emergency Department Note ---
Entered by Keri Anaya acting as a scribe for History of Present Illness General Chief complaint: Flank Pain Stated complaint: ACUTE PAIN RIGHT SIDE Time Seen by Provider: 08/26/18 09:37 Source: patient Mode of arrival: ambulatory Limitations: no limitations History of Present Illness Onset (ago): day(s) 1 Location: right (right flank) Severity: severe Pain Consistency: + constant Maximum Pain Intensity: 10 Current Pain Intensity: 10 Exacerbated By: + other (lying down, deep breathing) Associated symptoms: no chest pain, no fever/chills, no nausea/vomiting, no shortness of breath and no other (The patient denies hematuria. ) The patient is a 58 year old male with a history of prostate cancer and C-diff who presents to the ED with complaints of constant right sided flank pain that onset last night. The patient presents with his . He states that he ate beef 2 hours before he went to bed. The patient notes that the pain is exacerbated with lying down and deep breathing. He rates his pain as 10/10 in severity. He notes that the pain is severe and he has not experienced this before. The patient denies nausea, vomiting, chest pain, shortness of breathing, fever, chills, and hematuria. He states that he vapes marijuana. Home Medications Home Medications Medication Instructions Recorded Confirmed Type Centrum 1 tab PO DAILY 03/19/18 08/26/18 History allopurinol 300 mg PO QAM 03/19/18 08/26/18 History budesonide-formoterol 1 puff INHALATION BID 03/19/18 08/26/18 History levalbuterol tartrate 2 inh INHALATION Q4 PRN 03/19/18 08/26/18 History omeprazole 20 mg PO QPM 03/19/18 08/26/18 History ranitidine HCl 150 mg PO BID 03/19/18 08/26/18 History zolpidem 12.5 mg PO HS 03/19/18 08/26/18 History atorvastatin 40 mg PO HS #30 tab 03/21/18 08/26/18 Rx Florastor 1 dose pk PO DAILY 04/27/18 08/26/18 History Medical Marijuana 1 dose INHALATION BID 05/04/18 08/26/18 History vancomycin 125 mg PO Q2D 08/26/18 08/26/18 History Allergies Allergy/AdvReac Type Severity Reaction Status Date / Time No Known Allergies Allergy Unknown Verified 08/26/18 11:03 Past Med/Surg History Medical History Right flank pain Nausea and vomiting after administration of anesthetic agent NOT EVERY TIME History of infection MAR 2018 FOLLOWING PROSTATE BX...RESOLVED Chronic back pain History of anesthesia reaction "EXTREMELY HIGH TOLERANCE, NOT ENOUGH MEDICINE TO GET HIM DOWN" Anxiety (Chronic) Dyslipidemia (Chronic) Insomnia (Chronic) Prostate cancer (Chronic) Anemia (Resolved) Asthma Barretts esophagus Erectile dysfunction GERD (gastroesophageal reflux disease) Gout Hx of Clostridium difficile infection Sleep apnea CPAP Surgical History History of prostate biopsy History of colonoscopy History of endoscopy H/O hernia repair x2 abdomen Hx of appendectomy H/O sinus surgery H/O inguinal hernia repair (Resolved) H/O umbilical hernia repair (Resolved) History of appendectomy (Resolved) History of nasal septoplasty (Resolved) History of tonsillectomy (Resolved) History of lumbar surgery NO HARDWARE , X2 Social History Preferred Language: Vincentian Communication Ability: Effective Communication Tools: Writing 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 Smoked 2-3 ppd x 20 years. Do You Dip or Chew Tobacco: No Hx Alcohol Use: Yes Alcohol type: hard liquor Hx Substance Use: Yes substance use type: marijuana Substance Use Type Other:: Medically prescribed, uses vapor delivery and/or gtt's Last Used Substance Other:: last hs Review of Systems See HPI for pertinent positives & negatives. and A total of 10 systems reviewed and were otherwise negative Physical Exam Vital Signs Vital Signs - 24 hr 08/26/18 09:11 08/26/18 09:54 08/26/18 10:36 Temperature 37.1 C Temperature Source Oral Sepsis Recent Fever Within 48 Hours No Sepsis New/Unexplained Change in Mental Status No Sepsis Action Taken by Nursing No Action Required Pulse Rate 76 Pulse Rate [Apical] 79 Respiratory Rate 18 17 Respiratory Depth Blood Pressure 128/88 Blood Pressure [Left Arm] 121/73 Blood Pressure Mean 101 Blood Pressure Mean [Left Arm] 89 Pulse Oximetry 94 95 94 Oxygen Delivery Method Room Air Room Air Room Air 08/26/18 13:44 08/26/18 15:14 Temperature Temperature Source Sepsis Recent Fever Within 48 Hours Sepsis New/Unexplained Change in Mental Status Sepsis Action Taken by Nursing Pulse Rate 78 Pulse Rate [Apical] 75 Respiratory Rate 18 16 Respiratory Depth Normal Blood Pressure 128/84 Blood Pressure [Left Arm] 123/75 Blood Pressure Mean 98 Blood Pressure Mean [Left Arm] 91 Pulse Oximetry 97 95 Oxygen Delivery Method Room Air Room Air GENERAL: Awake, alert, fatigued-appearing, in no distress HENT: Normocephalic, atraumatic. Oropharynx with dry mucous membranes and otherwise unremarkable. EYES: Normal conjunctiva. Sclera non-icteric. NECK: Supple. No nuchal rigidity. FROM. No JVD. RESPIRATORY: Normal exam. CARDIAC: Regular rate, normal rhythm. Extremities warm and well perfused. Pulses equal. ABDOMEN: Soft, non-distended. Mild right upper quadrant tenderness to palpation. No rebound or guarding. No masses. Equivocal Booker's sign. RECTAL: Deferred. MUSCULOSKELETAL: Chest examination reveals no tenderness. The back is symmetrical on inspection without obvious abnormality. There is no CVA tende rness to palpation. No joint edema. LOWER EXTREMITIES: Calves are equal size bilaterally and non-tender. No edema. No discoloration. NEURO: Normal sensorium. No sensory or motor deficits noted. SKIN: No rash or jaundice noted. Course 0950: Past medical records reviewed. The patient was evaluated in room B03B. A complete history and physical examination was performed. 0958: I performed a bedside ultrasound. 1433: I reviewed the patient's case with Dr. Lynette Kirby - [facility]. She will evaluate the patient for further management. Consultations Consultation #1: 1433: I reviewed the patient's case with Dr. Lynette Kirby - [facility]. She will evaluate the patient for further management. Time: 14:33 Administered Medications Acetaminophen (Tylenol) 650 mg PO Q4H PRN PRN Reason: Pain or Fever Stop: 09/25/18 18:07 Last Admin: 08/26/18 21:48 Dose: 650 mg Documented by: [id number] Atorvastatin Calcium (Lipitor) 40 mg PO HS THA Stop: 09/25/18 20:59 Last Admin: 08/26/18 21:41 Dose: 40 mg Documented by: [id number] Budesonide/Formoterol Fumarate (Symbicort 160mcg/4.5mcg) 1 puffs INH BID THA Stop: 09/25/18 20:59 Last Admin: 08/26/18 21:42 Dose: 1 puffs Documented by: [id number] Heparin Sodium/Dextrose (Heparin Sodium/Dextrose) 25,000 units in 500 mls @ 31 mls/hr IV .Q16H8M THA; Protocol Stop: 09/25/18 16:14 Last Admin: 08/26/18 18:11 Dose: 1,550 units/hr, 31 mls/hr Documented by: [id number] Cosigned by: [id number] Ioversol (Optiray 320 125ml) 119 ml IV ONCE PRN PRN Reason: Interaction Checking Stop: 08/30/18 13:38 Last Admin: 08/26/18 13:39 Dose: 119 ml Documented by: [id number] Morphine Sulfate (Morphine Sulfate) 4 mg IV Q4 PRN PRN Reason: Chest Pain Stop: 09/09/18 18:07 Last Admin: 08/26/18 18:50 Dose: 4 mg Documented by: [id number] Pantoprazole Sodium (Protonix) 40 mg PO QPM THA Stop: 09/25/18 20:59 Last Admin: 08/26/18 21:41 Dose: 40 mg Documented by: [id number] Ranitidine HCl (Zantac) 150 mg PO BID [facility] Stop: 09/25/18 20:59 Last Admin: 08/26/18 21:41 Dose: 150 mg Documented by: [id number] Zolpidem Tartrate (Ambien) 10 mg PO HS THA Stop: 09/25/18 20:59 Last Admin: 08/26/18 21:41 Dose: 10 mg Documented by: [id number] Discontinued Medications Heparin Sodium (Porcine) (Heparin Iv Bolus) Confirm Administered Dose 10,000 units .ROUTE .STK-MED ONE Stop: 08/26/18 15:04 Last Admin: 08/26/18 15:09 Dose: 7,000 units Documented by: [id number] Cosigned by: [id number] Heparin Sodium/Dextrose () 1 ea IV NOW STA; Protocol Stop: 08/26/18 14:29 Last Admin: 08/26/18 15:20 Dose: Not Given Documented by: [id number] Heparin Sodium/Dextrose (Heparin Sodium/Dextrose) Confirm Administered Dose 25,000 units IV .STK-MED ONE Stop: 08/26/18 15:04 Last Admin: 08/26/18 15:10 Dose: 1,550 units Documented by: [id number] Cosigned by: [id number] Sodium Chloride (Nss 1000ml) 1,000 mls @ 999 mls/hr IV .Q1H1M THA Stop: 08/26/18 10:45 Last Infusion: 08/26/18 10:55 Dose: 0 mls/hr Documented by: [id number] Admin: 08/26/18 09:51 Dose: 999 mls/hr Documented by: [id number] Ketorolac Tromethamine (Toradol) 15 mg IV NOW STA Stop: 08/26/18 09:38 Last Admin: 08/26/18 09:52 Dose: 15 mg Documented by: [id number] Morphine Sulfate (Morphine Sulfate) 10 mg IV NOW STA Stop: 08/26/18 10:06 Last Admin: 08/26/18 10:35 Dose: 10 mg Documented by: [id number] Medical Decision Making Differential Diagnosis Differential diagnoses: Appendicitis, diverticulitis, PUD, biliary pathology, UTI, pancreatitis, obstruc tion, mesenteric ischemia, aortic pathology, infections, inflammatory bowel disease, renal colic, as well as others were entertained. Medical Records Attestation: I reviewed the patient's medical records. Home Medications Current Medication List: was personally reviewed by me Laboratory Data Attestation: I reviewed the patient's lab results. Result diagrams: 08/26/18 09:41 08/26/18 09:41 Lab Results 08/26/18 08/26/18 08/26/18 Range/Units 09:41 09:41 09:41 WBC 7.88 (4.8-10.8) K/uL RBC 4.51 L (4.7-6.1) M/uL Hgb 14.1 (14.0-18.0) g/dL Hct 39.9 L (42-52) % MCV 88.5 (80-100) fL MCH 31.3 (25-34) pg MCHC 35.3 (32-36) g/dL RDW Std Deviation 49.0 H (36.4-46.3) fL RDW Coeff of Sher 15.2 H (11.5-14.5) % Plt Count 205 (130-400) K/uL MPV 10.6 H (7.4-10.4) fL Immature Gran % (Auto) 0.3 % Neut % (Auto) 74.5 % Lymph % (Auto) 14.1 % [place] % (Auto) 10.2 % Eos % (Auto) 0.6 % Baso % (Auto) 0.3 % Immature Gran # (Auto) 0.02 (0.00-0.02) K/uL Neut # (Auto) 5.88 (1.4-6.5) K/uL Lymph # (Auto) 1.11 L (1.2-3.4) K/uL [place] # (Auto) 0.80 H (0.11-0.59) K/uL Eos # (Auto) 0.05 (0-0.5) K/uL Baso # (Auto) 0.02 (0-0.2) K/uL APTT (21.0-31.0) Seconds PTT Ratio Sodium 138 (136-145) mmol/L Potassium 4.1 (3.5-5.1) mmol/L Chloride 106 (98-107) mmol/L Carbon Dioxide 26 (21-32) mmol/L Anion Gap 6.0 (3-11) BUN 23 H (7-18) mg/dl Creatinine 0.96 (0.6-1.4) mg/dl Est Cr Clr Drug Dosing 101.1 ml/min Est GFR ( Amer) 100.6 Est GFR (Non-Af Amer) 86.8 BUN/Creatinine Ratio 23.8 H (10-20) Glucose 101 H (70-99) mg/dl Calcium 9.2 (8.5-10.1) mg/dl Total Bilirubin 0.3 (0.2-1) mg/dl AST 14 L (15-37) U/L ALT 27 (12-78) U/L Alkaline Phosphatase 76 (45-117) U/L Troponin I < 0.015 (0-0.045) ng/ml Total Protein 7.7 (6.4-8.2) gm/dl Albumin 3.7 (3.4-5.0) gm/dl Globulin 4.0 (2.5-4.0) gm/dl Albumin/Globulin Ratio 0.9 (0.9-2) Lipase 121 (73-393) U/L Urine Color Urine Appearance (Clear) Urine pH (4.5-7.5) Ur Specific Liberal (1.000-1.030) Urine Protein (Negative) Urine Glucose (UA) (Negative) Urine Ketones (Negative) Urine Blood (Negative) Urine Nitrite (Negative) Urine Bilirubin (Negative) Urine Urobilinogen (Negative) Ur Leukocyte Esterase (Negative) 08/26/18 08/26/18 Range/Units 10:38 14:44 WBC (4.8-10.8) K/uL RBC (4.7-6.1) M/uL Hgb (14.0-18.0) g/dL Hct (42-52) % MCV (80-100) fL MCH (25-34) pg MCHC (32-36) g/dL RDW Std Deviation (36.4-46.3) fL RDW Coeff of Sher (11.5-14.5) % Plt Count (130-400) K/uL MPV (7.4-10.4) fL Immature Gran % (Auto) % Neut % (Auto) % Lymph % (Auto) % [place] % (Auto) % Eos % (Auto) % Baso % (Auto) % Immature Gran # (Auto) (0.00-0.02) K/uL Neut # (Auto) (1.4-6.5) K/uL Lymph # (Auto) (1.2-3.4) K/uL [place] # (Auto) (0.11-0.59) K/uL Eos # (Auto) (0-0.5) K/uL Baso # (Auto) (0-0.2) K/uL APTT 27.0 (21.0-31.0) Seconds PTT Ratio 1.0 Sodium (136-145) mmol/L Potassium (3.5-5.1) mmol/L Chloride (98-107) mmol/L Carbon Dioxide (21-32) mmol/L Anion Gap (3-11) BUN (7-18) mg/dl Creatinine (0.6-1.4) mg/dl Est Cr Clr Drug Dosing ml/min Est GFR ( Amer) Est GFR (Non-Af Amer) BUN/Creatinine Ratio (10-20) Glucose (70-99) mg/dl Calcium (8.5-10.1) mg/dl Total Bilirubin (0.2-1) mg/dl AST (15-37) U/L ALT (12-78) U/L Alkaline Phosphatase (45-117) U/L Troponin I (0-0.045) ng/ml Total Protein (6.4-8.2) gm/dl Albumin (3.4-5.0) gm/dl Globulin (2.5-4.0) gm/dl Albumin/Globulin Ratio (0.9-2) Lipase (73-393) U/L Urine Color Yellow Urine Appearance Clear (Clear) Urine pH 7.0 (4.5-7.5) Ur Specific Liberal 1.023 (1.000-1.030) Urine Protein Negative (Negative) Urine Glucose (UA) Negative (Negative) Urine Ketones Negative (Negative) Urine Blood Negative (Negative) Urine Nitrite Negative (Negative) Urine Bilirubin Negative (Negative) Urine Urobilinogen Negative (Negative) Ur Leukocyte Esterase Negative (Negative) Imaging Data Radiologist's Impression: Radiology results as stated below per my review and the radiologist's interpretation: CT angio chest PE protocol CLINICAL HISTORY: 58 years-old Male presenting with right flank pain, clinical concern for pulmonary bolus. TECHNIQUE: Multidetector CT angiography of the chest was performed after administration of intravenous contrast. 3-D volumetric and/or maximum intensity projection (MIP) images were subsequently reconstructed for review. IV contrast: 119 mL of Optiray 320. One or more dose lowering techniques were used consistent with the principles of ALARA (as low as reasonably achievable), including automatic exposure control, mA or kV adjustment to individual patient size, and/or use of iterative reconstruction. COMPARISON: Noncontrast CT chest from 10/06/2017. CT DOSE (mGy.cm): The estimated cumulative dose is 1343.26 mGy.cm. FINDINGS: Watch Supervisor topogram: Unremarkable. Pulmonary vasculature: The study is adequate for assessment of the pulmonary vascular tree. Limited acute pulmonary emboli in the medial basal subsegmental pulmonary arteries of the right lower lobe. No other pulmonary emboli are identified. Main pulmonary artery is not enlarged. No flattening of the interventricular septum. No intracardiac filling defect. No reflux of contrast into the hepatic veins. Remaining chest: Soft tissues: Normal thyroid and thoracic inlet. Gynecomastia. No axillary, supraclavicular, mediastinal, or hilar lymphadenopathy. Atherosclerosis of the aorta. Normal heart size. Coronary artery calcification. Trace right pleural effusion. Upper abdomen normal. Lungs and airways: No pneumothorax. Central airways patent. Pulmonary arteries mildly enlarged relative to adjacent bronchi. Mild interlobular septal thickening evident at the lung bases. Dependent groundglass and solid consolidation at the lung bases likely atelectasis, which is fairly extensive. Upper lobe predominant centrilobular emphysema. Musculoskeletal: Degenerative changes of the spine. IMPRESSION: 1. Acute subsegmental pulmonary embolus in the right lower lobe. No CT evidence of right heart strain. 2. Extensive bibasilar atelectasis. 3. Trace right pleural effusion. 4. Underlying emphysema. The report will be called/faxed according to standard departmental protocol. Electronically signed by: Jr Nur M.D. 08/26/2018 1:55 PM Dictated: 08/26/18 1348 Transcribed: 08/26/18 [address] WITH IV CONTRAST CT DOSE: HISTORY: right flank pain TECHNIQUE: Multiaxial CT images of the abdomen and pelvis were performed following the use of intravenous contrast. A dose lowering technique was utilized adhering to the principles of ALARA. COMPARISON STUDY: Abdomen and pelvis CT 05/26/2018. FINDINGS: Bibasilar linear densities likely representing subsegmental atelectasis. No pneumoperitoneum. No pneumatosis. No fractures within the visualized osseous structures. Trace right pleural effusion. The liver, gallbladder, pancreas, spleen, adrenal glands, and right kidney are unremarkable. There is a punctate stone within the upper pole of the left kidney. There are are a few small hypodense lesions within the left kidney with the largest measuring 9 mm. These are technically too small to characterize favor cysts. These remain unchanged. No retroperitoneal lymphadenopathy. Prior midline abdominal wall incision. The bladder is unremarkable. There is a 4.0 x 2.2 cm cystic focus adjacent to the left external iliac vessels. This may represent a small amount of loculated fluid and is new from the prior study. A few colonic diverticula. No evidence for diverticulitis. No bowel wall thickening or obstruction. The appendix is not identified and reportedly surgically absent. IMPRESSION: 1. Left-sided nephrolithiasis. No ureteral stones. No hydronephrosis. 2. No bowel wall thickening or obstruction. 3. Colonic diverticulosis. 4. Trace right pleural effusion. 5. There is a new 4.0 x 2.2 cm cystic focus adjacent to the left external iliac vessels. This may represent a small amount of loculated fluid from the prior study. However, follow-up pelvis CT in one month is recommended to ensure resolution. Electronically signed by: Sal Durham M.D. 08/26/2018 2:05 PM Dictated: 08/26/18 1351 Transcribed: 08/26/18 1351 gallbladder CLINICAL HISTORY: 58 years-old Male presenting with ruq pain. TECHNIQUE: Real-time grayscale and limited color Doppler ultrasound imaging of the abdomen limited to the right upper quadrant was performed. COMPARISON: CT from 05/26/2018. FINDINGS: Pancreas: Visualized portions of the pancreatic head and body normal. Liver: Normal echogenicity and echotexture. The liver measures 20.2 cm in maximal sagittal dimension. No sonographic evidence of hepatic mass. Main portal vein patent with normal directional flow. Biliary: No intrahepatic biliary ductal dilatation. Common bile duct measures up to 4 mm in diameter. Gallbladder: No evidence of gallstones, gallbladder wall thickening, gallbladder distention, or pericholecystic fluid or inflammatory change. Sonographic Booker's sign negative. Right kidney: Normal in appearance without evidence of hydronephrosis. Ascites: None. Other: None. IMPRESSION: Hepatomegaly. No cholelithiasis or biliary ductal dilatation. Electronically signed by: Jr Nur M.D. 08/26/2018 12:52 PM Dictated: 08/26/18 1250 Transcribed: 08/26/18 1250 ECG Data Attestation: I personally reviewed and interpreted this ECG as follows: Indication: abdominal pain Rate (beats per minute): 70 Rhythm: sinus rhythm Findings: + 1st degree AV block; no acute ischemic change Blood Pressure Blood Pressure Findings: Normal blood pressure MDM Narrative The patient is a pleasant 50-year-old gentleman with a past medical history of prostate cancer status post surgery in May who presents emergency department with acute onset right flank pain per hpi. On arrival patient is fatigued appearing but no acute distress, afebrile stable vital signs. WBC, hemoglobin, platelets within normal limits. Chemistry without acidosis. LFTs unremarkable. Troponin negative. UA negative for infection. Formal gallbladder ultrasound negative for acute process. Subsequently, given the patient's history of prostate cancer and report of pleuritic symptoms CT abdomen pelvis as well as CTA of the chest ordered. CT chest shows right-sided subsegmental pulmonary embolism. EKG unremarkable without overt acute ischemia. Patient feeling improved after initial IV fluid hydration, Toradol, morphine. Case discussed with [place] O[place]eda, [facility] [place], who will evaluate the patient for admission. Per admitting team will initiate treatment with heparin. Impression & Plan Pulmonary embolism Critical Care Time I have personally spent 35 minutes of critical care time in the direct management of this patient. This includes bedside care, interpretation of diagnostic studies, and testing, discussion with consultants, patient, and family members, and other required patient management activities. This 35 minutes is in excess of all separately billable procedures. Critical Care Time: Yes (35) Total Critical Care Time: 35 Discharge Plan Visit Data *Final* Discharge Date/Time: 08/26/18 17:03 Chief Complaint: Flank Pain Stated Complaint: ACUTE PAIN RIGHT SIDE ED Provider: Saturnino Sue Discharge Problem: Pulmonary embolism Patient Disposition: Admitted As Inpatient Discharge Instructions Interventions: ED Discharge Assessment Last Done: 08/26/18 17:03 Discharge Problem: Pulmonary embolism Qualifiers: Pulmonary embolism type: unspecified Chronicity: acute Acute cor pulmonale presence: without acute cor pulmonale Qualified Code(s): I26.99 - Other pulmonary embolism without acute cor pulmonale The scribe's documentation has been prepared under my direction and personally reviewed by me in its entirety. I confirm that the note above accurately reflects all work, treatment, procedures, and medical decision making performed by me.
[2018-08-26] MEDS ORDERED: LEVALBUTEROL TARTRATE 15 GM HFA.AER.AD INH PRN (18:08)
[2018-08-26] MEDS ORDERED: ACETAMINOPHEN 325 MG TAB PO PRN (18:08)
[2018-08-26] MEDS ORDERED: Heparin IV Standard *NO* Bolus STA (18:08)
[2018-08-26] MEDS: Heparin Adult STANDARD Wt-Based Dextrose 5% 25,000 units/500 mL IV SCH (18:11)
[2018-08-26] MEDS: MoRPHine SULFATE 4 MG/ML 1 ML CARP\\VIAL IV PRN (18:50)
[2018-08-26] MEDS ORDERED: NON-FORMULARY MEDICATION (Medical Marijuana 1 EA) INH SCH (21:00)
--- NOTE | 2018-08-26 21:19 | Ultrasound Report ---
US venous doppler LE BI CLINICAL HISTORY: Pulmonary embolism. COMPARISON STUDY: October 2016 FINDINGS: Real-time and color flow Doppler imaging were performed. Flow was seen within the femoral, popliteal and calf veins with no intraluminal thrombus demonstrated. The saphenous vein is patent. IMPRESSION: No evidence of lower extremity DVT. Electronically signed by: Alexis Taveras M.D. 08/26/2018 9:18 PM
[2018-08-26] MEDS: ZOLPIDEM TARTRATE 10 MG TAB PO SCH (21:41)
[2018-08-26] MEDS: PANTOprazole 40 MG TAB PO SCH (21:41)
[2018-08-26] MEDS: ATORVASTATIN 40 MG TAB PO SCH (21:41)
[2018-08-26] MEDS: BUDESONIDE/FORMOTEROL FUMARATE 160/4.5 60 PUFFS/INHALER INH SCH (21:42)
[2018-08-26 22:12] LABS: Partial Thromboplastin Ratio 1.9
[2018-08-26 22:22] LABS: Partial Thromboplastin Time 50.4 Seconds (21.0-31.0)
[2018-08-27] MEDS: MoRPHine SULFATE 4 MG/ML 1 ML CARP\\VIAL IV PRN ×2 (01:03→07:28)
[2018-08-27] MEDS: Heparin Adult STANDARD Wt-Based Dextrose 5% 25,000 units/500 mL IV SCH (07:18)
[2018-08-27 07:31] LABS: Basophils # (auto) 0.02 K/uL (0-0.2); Basophils % (auto) 0.3 %; Eosinophils # (auto) 0.04 K/uL (0-0.5); Eosinophils % (auto) 0.6 %; Hematocrit (blood only) 38.8 % (42-52); Hemoglobin 13.9 g/dL (14.0-18.0); Immature Granulocytes # (auto) 0.02 K/uL (0.00-0.02); Immature Granulocytes % (auto) 0.3 %; Lymphocytes # (auto) 1.15 K/uL (1.2-3.4); Lymphocytes % (auto) 16.1 %; Mean Corpuscular Hgb Conc 35.8 g/dL (32-36); Mean Platelet Volume 10.4 fL (7.4-10.4); Monocytes # (auto) 0.71 K/uL (0.11-0.59); Neutrophils # (auto) 5.19 K/uL (1.4-6.5); Neutrophils % (auto) 72.7 %; Platelet Count 193 K/uL (130-400); RDW Coefficient of Variation 14.9 % (11.5-14.5); RDW Standard Deviation 48.2 fL (36.4-46.3); Red Blood Count 4.41 M/uL (4.7-6.1); White Blood Count 7.13 K/uL (4.8-10.8)
[2018-08-27 07:42] LABS: Prothrombin Time 10.3 Seconds (9.0-12.0)
[2018-08-27 08:09] LABS: BUN Creatinine Ratio 15.5 (10-20); Calcium 9.3 mg/dl (8.5-10.1); Creatinine Clr Calc Pharmacy 122.9 ml/min; Est GFR (African American) 114.7; Potassium 3.8 mmol/L (3.5-5.1)
[2018-08-27 08:13] LABS: Partial Thromboplastin Ratio 1.8
[2018-08-27 08:15] LABS: Partial Thromboplastin Time 48.6 Seconds (21.0-31.0)
[2018-08-27] MEDS: CEROVITE ADV FORMULA TAB PO SCH (08:25)
[2018-08-27] MEDS: SACCHAROMYCES BOULARDII 250 MG CAP PO SCH (08:25)
[2018-08-27] MEDS: BUDESONIDE/FORMOTEROL FUMARATE 160/4.5 60 PUFFS/INHALER INH SCH ×2 (08:26→21:28)
[2018-08-27] MEDS: ALLOPURINOL 300 MG TAB PO SCH (08:26)
[2018-08-27] MEDS ORDERED: HYDROmorphone INJ 0.5 MG/0.5 ML SYR IV ONE (08:42)
[2018-08-27] MEDS ORDERED: RASPBERRY SYRUP 5 ML UDP PO SCH (09:00)
[2018-08-27] MEDS ORDERED: VANCOMYCIN HCL 125 MG/2.5ML SOLN PO SCH (09:00)
[2018-08-27] MEDS: ONDANSETRON INJ 2 MG/ML 2 ML VIAL IV PRN ×2 (09:07→18:09)
[2018-08-27] MEDS: HYDROmorphone INJ 1 MG/ML SYRINGE IV PRN ×2 (13:29→18:09)
--- NOTE | 2018-08-27 17:49 | Hospitalist Progress Note ---
Date of Service August 27, 2018 Assessment & Plan (1) Pulmonary embolism: - CTA - RLL subsegmental; U/S LE without DVT; still experiencing R pleuritic chest pain; remains hemodynamically stable without hypoxia - Echo - EF 50-55% with no wall motion abnormalities; no found signs of R heart strain - Possibly provoked in the setting of recent surgery but did have prostate removed due to cancer - has F/U with Urology for close monitoring with high- sensitivity PSA - Patient and discussed AC - planning on Eliquis 10 mg BID x 7 days then 5 mg BID thereafter - given likely provoked nature may only need 3-6 month treatment - if ongoing issues with elevated PSA even after prostatectomy may n eed to consider the possibility of this being due to underlying malignancy - High tolerance to pain medications so sometimes hard to control; Dilaudid 1 mg PRN and Tylenol 1000 mg PRN Present on Admission?: Yes (2) Hx of Clostridium difficile infection: - No worsening of symptoms and denies diarrhea - Has had 4 recurrences of C. diff - follows with ID and currently at Vancomycin 125 mg twice weekly; has F/U soon to possibly go to once a week and states he may be on it indefinitely Present on Admission?: Yes (3) Prostate cancer: - S/P Prostatectomy as above - Follows with [facility] [place] [facility] Present on Admission?: Yes (4) Abnormal CT scan, pelvis: - Loculated fluid collection next to L external iliac vessels (4 x 2.2 cm) - recommending repeat CT abd/pelvis x 1 month - Likely represents post-operative finding but will need monitoring Present on Admission?: Yes (5) Anxiety: - Stable -Not on medications at home but does vape marijuana Present on Admission?: Yes (6) Asthma: - Stable without exacerbation - Continue home Symbicort; Levalbuterol PRN Present on Admission?: Yes (7) Chronic back pain: - Stable - Usually vapes marijuana for this but cannot do that here in the hospital due to policy Present on Admission?: Yes (8) Dyslipidemia: - Continue Atorvastatin 40 mg HS Present on Admission?: Yes (9) GERD (gastroesophageal reflux disease): - H/O Pike's esophagus - Continue PPI and routine surveillance with GI Present on Admission?: Yes (10) Gout: - Continue Allopurinol 300 mg daily Present on Admission?: Yes (11) Insomnia: - Severe, sees sleep medicine - Continue Ambien CR 12.5 mg nightly to be brought in from home Present on Admission?: Yes (12) Sleep apnea: - Severe, central sleep apnea - Uses BiPAP 10/5 with a back-up rate of 10 - His will bring in his BiPAP from home Present on Admission?: Yes (13) Erectile dysfunction: - Holding home sildenafil (14) DVT prophylaxis: - Eliquis Disposition: Pending pain control possible D/C next 1-2 days Subjective Reports breathing well and overall doing well. Continues to have R sided chest/flank pain that worsens with deep breathing. Current pain medication not very effective and reports high tolerance to pain medication. Review of Systems Constitutional: no fever and no chills Respiratory: no cough, no dyspnea, no dyspnea on exertion, no hemoptysis and no wheezing Cardiovascular: + chest pain (more into R flank); no palpitations and no edema Gastrointestinal: + nausea; no abdominal pain, no vomiting, no constipation and no diarrhea/loose stools Genitourinary: no dysuria Musculoskeletal: + body aches Integumentary: no rash Physical Exam Constitutional: well developed and well nourished; no acute distress and not ill appearing Eyes: + anicteric sclerae ENMT: Ears: no hearing impairment Neck: normal visual inspection and trachea midline Respiratory: normal respiratory effort, lungs clear to auscultation Cardiovascular: RRR, no murmur, no edema Gastrointestinal (Abdomen): Inspection/Auscultation: normal bowel sounds Percussion/Palpation: abdomen soft; abdomen nontender Musculoskeletal: Head/Neck/Chest: normocephalic, head atraumatic and neck supple Extremities: no cyanosis and no clubbing Skin: no rashes, warm and dry Neurologic: moves all extremities Psychiatric: A+Ox3, euthymic affect Results & Data Vital Signs (Past 12 Hours) Vital Signs Temp Pulse Pulse Pulse Resp BP Pulse Ox 08/27/18 15:50 37 C 70 15 121/76 94 08/27/18 12:00 37.2 C 77 18 127/78 93 08/27/18 07:30 37.2 C 72 18 143/85 H 94 08/27/18 07:20 86 (1) Pulmonary embolism Acute cor pulmonale presence: without acute cor pulmonale Chronicity: acute Pulmonary embolism type: unspecified Qualified Code(s): I26.99 - Other pulmonary embolism without acute cor pulmonale
[2018-08-27] MEDS ORDERED: ACETAMINOPHEN 500 MG TAB PO PRN (18:44)
[2018-08-27] MEDS: APIXABAN 5 MG TABLET PO SCH (19:08)
[2018-08-27] MEDS: ZOLPIDEM TARTRATE 10 MG TAB PO SCH (21:18)
[2018-08-27] MEDS: PANTOprazole 40 MG TAB PO SCH (21:27)
[2018-08-27] MEDS: ATORVASTATIN 40 MG TAB PO SCH (21:28)
[2018-08-28] MEDS: HYDROmorphone INJ 1 MG/ML SYRINGE IV PRN (07:46)
[2018-08-28] MEDS ORDERED: OXYCODONE HCL IR 5 MG TAB (IMMEDIATE RELEASE) PO PRN (08:05)
[2018-08-28] MEDS: BUDESONIDE/FORMOTEROL FUMARATE 160/4.5 60 PUFFS/INHALER INH SCH (09:15)
[2018-08-28] MEDS: CEROVITE ADV FORMULA TAB PO SCH (09:15)
[2018-08-28] MEDS: ALLOPURINOL 300 MG TAB PO SCH (09:16)
[2018-08-28] MEDS: SACCHAROMYCES BOULARDII 250 MG CAP PO SCH (09:16)
[2018-08-28] MEDS: APIXABAN 5 MG TABLET PO SCH (09:16)
--- NOTE | 2018-08-28 22:55 | Discharge Summary ---
Date of Service August 28, 2018 Admission HPI Per Admitting Provider This patient is a 58-year-old male with a history of prostate cancer status post prostatectomy 05/2017, central YAIMA on BiPAP, insomnia, asthma, anxiety disorder, GERD with Pike's, gout, HL, ED, lumbar DDD, and recurrent C. difficile colitis who presents to the ER with 1-2 days of worsening right sided mid back pain that was worse with deep inspiration. He was not able to sleep all last night due to the pain. He denies shortness of breath or substernal chest pain. Denies lightheadedness or cough. Denies hemoptysis. Denies fevers/chills/sweats. He had his prostatectomy in 05/2018, but otherwise denies any recent travel, no history of DVT or PE in the past. He was found in the ER on CT angiogram of the chest to have subsegmental PEs in the right lower lobe. He was not hypoxic and there is no evidence on CT imaging of right heart strain. His blood pressure was within normal limits. His pain was improved with receiving morphine and Toradol. Admission Exam Per Admitting Provider Constitutional: WD/WN, vitals as above Eyes: PERRL, conjunctivae normal, anicteric sclerae ENMT: external ear and nose normal, oropharynx normal Neck: trachea midline, no thyromegaly Respiratory: normal respiratory effort, lungs clear to auscultation Cardiovascular: RRR, no murmur, no edema Gastrointestinal (Abdomen): normal bowel sounds, soft, nontender, no hepatosplenomegaly Musculoskeletal: Extremities: extremities normal to inspection; no cyanosis and no clubbing Skin: no rashes, warm and dry Neurologic: moves all extremities and awake; no focal motor deficits Psychiatric: A+Ox3, euthymic affect Principal Diagnosis Acute pulmonary embolism Discharge Exam Constitutional WD/WN, vitals as above Eyes PERRL, conjunctivae normal, anicteric sclerae ENMT external ear and nose normal, oropharynx normal Neck trachea midline, no thyromegaly Respiratory normal respiratory effort, lungs clear to auscultation Cardiovascular RRR, no murmur, no edema Gastrointestinal (Abdomen) normal bowel sounds, soft, nontender, no hepatosplenomegaly Musculoskeletal no cyanosis or clubbing, extremities motor strength 5/5 Skin no rashes, warm and dry Neurologic patellar DTR's 2+ bilat, sensation intact and PERRL, EOMI, accommodation nl, no face palsy, no dysarthria Psychiatric A+Ox3, euthymic affect Lymphatic no cervical or axillary lymphadenopathy Discharge Data Allergies Allergy/AdvReac Type Severity Reaction Status Date / Time No Known Allergies Allergy Unknown Verified 08/26/18 11:03 Consultations 08/26/18 14:28 ED Decision to Admit Stat 08/26/18 18:08 Consult Case Management - Discharge Planning Routine Ordered Studies 08/26/18 11:48 US gallbladder Stat 08/26/18 12:59 CT abd pelvis IV con only Stat CT angio chest PE protocol Stat 08/26/18 15:24 US venous doppler LE BI Stat Hospital Course (1) Pulmonary embolism: - CTA - RLL subsegmental; U/S LE without DVT; still experiencing R pleuritic chest pain; remains hemodynamically stable without hypoxia - Echo - EF 50-55% with no wall motion abnormalities; no found signs of R heart strain - Possibly provoked in the setting of recent surgery but did have prostate removed due to cancer - has F/U with Urology for close monitoring with high- sensitivity PSA Plan for Eliquis for full anticoagulation 10mg BID x 7 days then 5mg BID thereafter for pain control, will use Oxycodone, pain much better after initial 24 hours when he was requiring Dilaudid IV discussed with him that the pain may linger for a week or more due to the PE follow up with PCP (2) Hx of Clostridium difficile infection: - No worsening of symptoms and denies diarrhea - Has had 4 recurrences of C. diff - follows with ID and currently at Vancomycin 125 mg twice weekly; has F/U soon to possibly go to once a week and states he may be on it indefinitely (3) Prostate cancer: - S/P Prostatectomy as above - Follows with [facility] [place] [facility] (4) Abnormal CT scan, pelvis: - Loculated fluid collection next to L external iliac vessels (4 x 2.2 cm) - recommending repeat CT abd/pelvis x 1 month - Likely represents post-operative finding but will need monitoring (5) Anxiety: - Stable -Not on medications at home but does vape marijuana (6) Asthma: - Stable without exacerbation - Continue home Symbicort; Levalbuterol PRN (7) Chronic back pain: - Stable - Usually vapes marijuana for this but cannot do that here in the hospital due to policy (8) Dyslipidemia: - Continue Atorvastatin 40 mg HS (9) GERD (gastroesophageal reflux disease): - H/O Pike's esophagus - Continue PPI and routine surveillance with GI (10) Gout: - Continue Allopurinol 300 mg daily (11) Insomnia: - Severe, sees sleep medicine - Continue Ambien CR 12.5 mg nightly to be brought in from home (12) Sleep apnea: - Severe, central sleep apnea - Uses BiPAP 10/5 with a back-up rate of 10 - His will bring in his BiPAP from home (13) Erectile dysfunction: - Holding home sildenafil (14) DVT prophylaxis: - Eliquis Total Time Total Time Spent Total Time Spent (In Minutes): 32 minutes Total Time Includes: Examination of the Patient, Discharge Planning and Medication Reconciliation Discharge Plan Discharge Items Patient Disposition: Home - Self-Care Reason For Visit: PULMONARY EMBOLISM Discharge Diagnosis: Pulmonary embolism Condition: Good Discharge Goals: Decrease discomfort, Improve disease control and Improve function Activity: Resume your previous activity Non-emergency contact: Primary Care Provider Call non-emergency contact if: you have any medication questions, your symptoms worsen, your pain is not controlled and you have a fever Follow-up/Referrals: Blas De La Rosa MD [Primary Care Provider] - 09/09/18 7:30 am (Please, follow up at Dr. De La Rosa's office with his associate, Nita ERICKSON, on FridaySeptember 09 at 7:30 am. *If you need to change this appointment, call the office at [phone].) Diet: Heart Healthy Add Provider Instructions: Medications: - ELIQUIS: 10mg twice a day for full anticoagulation, will need to be on this at least 6 months for treatment of pulmonary embolism - OXYCODONE: 10mg every 6 hours as needed for pain, if pain is mild can take just 5mg for the pain Pulmonary embolism, right side, subsegmental branch no evidence of DVT in the legs treat with Eliquis, will require at least 6 months of treatment, follow up with Dr. De La Rosa for pain, use the Oxycodone, 10mg for severe pain, 5mg for mild pain FOLLOW UP - call office of Dr. De La Rosa for follow up appt in one week - follow up with urology as previously scheduled Prescriptions: New oxycodone 5 mg Tablet 10 mg PO Q6 PRN (Reason: pain) 10 Days Qty: 40 RF: 0 Eliquis 5 mg Tablet 10 mg PO BID 30 Days Qty: 120 RF: 3 Continued ranitidine HCl 150 mg tablet 150 mg PO BID RF: 0 omeprazole 20 mg capsule,delayed release(DR/EC) 20 mg PO QPM RF: 0 allopurinol 300 mg tablet 300 mg PO QAM RF: 0 budesonide-formoterol 160-4.5 mcg/actuation HFA aerosol inhaler 1 puff Inhalation BID RF: 0 levalbuterol tartrate 45 mcg/actuation Hfa Aerosol Inhaler 2 inh INHALATION Q4 PRN (Reason: Shortness Of Breath Or Wheezing) RF: 0 zolpidem 12.5 mg Tablet,Ext Release Multiphase 12.5 mg PO HS RF: 0 Centrum 18-400 mg-mcg Tablet 1 tab PO DAILY RF: 0 atorvastatin 40 mg Tablet 40 mg PO HS Qty: 30 RF: 0 Florastor 250 mg Capsule 1 dose pk PO DAILY RF: 0 Medical Marijuana 1 dose Inhalation BID RF: 0 vancomycin 125 mg capsule 125 mg PO Q2D RF: 0 Stand-Alone Forms: [facility] Discharge Orders: Discharge Order (Routine); Ordered 08/28/18 Ordered By: Mg Hester Admission Data Admit Date/Time: 08/26/18 15:24 Attending Provider: Mg Hester Admit Provider: Hailey Ojeda Primary Care Provider: Blas De La Rosa Other Providers: Hailey Ojeda Service: Telemetry Medical Other Interventions: Discharge Summary Assessment (RN) Last Done: 08/28/18 14:00 DC Date/Time DO NOT enter until pt leaves facility: 08/28/18 12:00
== END 2018-08-28 12:00 | disposition home or self-care (01) | DRG 176 ==
LOC: ED 09:04 → SUATTDRO 15:24 → 2W 15:24
DX: K21.9 Gastro-esophageal reflux disease without esophagitis; J45.909 Unspecified asthma, uncomplicated; G89.29 Other chronic pain; E78.5 Hyperlipidemia, unspecified; G47.30 Sleep apnea, unspecified; M10.9 Gout, unspecified; F41.9 Anxiety disorder, unspecified; Z85.46 Personal history of malignant neoplasm of prostate; N52.9 Male erectile dysfunction, unspecified; I26.99 Other pulmonary embolism without acute cor pulmonale